=== PATIENT | male | born 1955 ===

== ENCOUNTER → 2022-10-17 16:06 | Outpatient (BNVA) | payer MEDICARE, OTHER, SELFPAY | PROVIDERS: Family Provider Nurse Practitioner Family; PCP Nurse Practitioner Family; Visit Provider Internal Medicine Cardiovascular Disease | DX: R07.9 Chest pain, unspecified (principal); R00.2 Palpitations; R00.1 Bradycardia, unspecified; Z86.73 Personal history of transient ischemic attack (TIA), and cerebral infarction without residual deficits; G20 Parkinson's disease | CPT/HCPCS: 93005; 99204 ==

== ENCOUNTER → 2023-02-05 13:29 | Outpatient (BNVA) | payer MEDICARE, OTHER, SELFPAY | PROVIDERS: Family Provider Nurse Practitioner Family; PCP Nurse Practitioner Family; Visit Provider Nurse Practitioner Family | DX: I63.9 Cerebral infarction, unspecified (principal) | CPT/HCPCS: 99214 ==

== ENCOUNTER 2023-04-20 08:47 | Outpatient (CLI) | payer MEDICARE, OTHER, SELFPAY ==
[2023-04-20 09:25] LABS: Basophils # 0.1 10^3/uL (0.0-0.1); Basophils % 0.6 %; Eosinophils # 0.9 10^3/uL (0.0-0.8); Eosinophils % 6.1 %; Hematocrit 48.2 % (37-53); Lymphocytes # 4.4 10^3/uL (0.8-4.8); Lymphocytes % 30.8 %; Mean Corpuscular HGB Conc 33.2 g/dL (30-55); Mean Corpuscular Hemoglobin 30.5 pg (27-33); Mean Platelet Volume 10.4 fL (7.4-10.4); Monocytes # 1.2 10^3/uL (0.2-0.9); Monocytes % 8.6 %; Neutrophils # 7.56 10^3/uL (1.8-7.7); Neutrophils % 53.5 %; Nucleated Red Blood Cells % 0 %; Platelet Count 168 10^3/cmm (157-399); Red Blood Count 5.24 10^6/uL (3.85-5.65); Red Cell Distribution Width 13.4 % (12.1-15.1); White Blood Count 14.16 10^3/uL (3.29-11.43)
[2023-04-20 09:32] VITALS: BMI 25.3
[2023-04-20 09:53] LABS: Slide Review Slide Review Perform
[2023-04-20] MEDS: cephALEXin 500 mg Capsule 2000 MG PO (09:53)
--- NOTE | 2023-04-20 10:37 | P.HP_ITS ---
Providers/Chief Complaint 2 Admitting Physician: FORTUNATO Phelps MD Primary Care Provider: Danielle Duarte APN Chief Complaint: I63.9 History of Present Illness Rigoberto Valdovinos is a 67 year old male with a history of recurrent CVA, cryptogenic. He had an event monitor which was unremarkable. For further management of his condition, an implantable cardiac monitoring was recommended. Patient is known to have parkinsonian tremor, high blood pressure, dyslipidemia, type 2 diabetes, hypothyroidism and COPD. No history for coronary disease or congestive heart failure. Currently has no fever or chills. He is on long-term prednisone. His white cell count is elevated possibly from the prednisone. Review of Systems 2 Narrative: CONSTITUTIONAL: No fever or chills. EYES: No blurring of vision or other visual disturbances lately. ENT: No hoarseness of voice, auditory disturbances or sore throat. CARDIOVASCULAR: As mentioned above. RESPIRATORY: No significant cough. GASTROINTESTINAL: No hematemesis or melena. GENITOURINARY: No dysuria or hematuria. INTEGUMENTARY: No skin rashes or history of skin cancer. NEURO: Patient has generalized tremor PSYCHIATRIC: No history of psychosis or major depression. HEMATOLOGIC: No bleeding disorders or significant anemia. ENDOCRINE: No history of polyuria or polydipsia. MUSCULOSKELETAL: No recent joint pain or swelling. ALLERGY/IMMUNOLOGY: As mentioned above. Medications/Allergies Home Medications Medication Instructions Recorded Confirmed Last Taken Type arformoterol 15 mcg/2 mL solution 2 ml inhalation BID 10/17/22 04/20/23 04/20/23 History for nebulization (Brovana) budesonide 0.25 mg/2 mL suspension 0.25 mg inhalation BID 10/17/22 04/20/23 04/20/23 History for nebulization carbidopa 25 mg-levodopa 100 mg 1 tab PO TID 10/17/22 04/20/23 04/19/23 History tablet cholecalciferol (vitamin D3) 125 125 mcg PO DAILY 10/17/22 04/20/23 04/19/23 History mcg (5,000 unit) capsule escitalopram oxalate 20 mg tablet 20 mg PO DAILY 10/17/22 04/20/23 04/19/23 History (Lexapro) glipizide 5 mg tablet 5 mg PO DAILY 10/17/22 04/20/23 04/19/23 History levothyroxine 75 mcg capsule 75 mcg PO DAILY 10/17/22 04/20/23 04/19/23 History lisinopril 10 mg tablet 10 mg PO DAILY 10/17/22 04/20/23 04/19/23 History prednisone 5 mg tablet 5 mg PO DAILY 10/17/22 04/20/23 04/19/23 History revefenacin 175 mcg/3 mL solution 175 mcg inhalation DAILY 10/17/22 04/20/23 04/19/23 History for nebulization (Yupelri) roflumilast 500 mcg tablet 500 mcg PO DAILY 10/17/22 04/20/23 04/19/23 History (Daliresp) rosuvastatin 10 mg tablet 10 mg PO DAILY 10/17/22 04/20/23 04/19/23 History clopidogrel 75 mg tablet 75 mg PO DAILY 02/05/23 04/20/23 04/19/23 History Allergies Allergy/AdvReac Type Severity Reaction Status Date / Time aspirin Allergy Severe ALGY-Difficulty Verified 04/18/23 11:01 Breathing Vitals/I&O/Wt Weight last 48 hrs Weight 192 lb Physical Exam 2 Narrative: GENERAL: The patient is alert and oriented times three. Not in any acute distress. HEENT: No significant pallor, icterus or lymphadenopathy.Oral cavity: There are no mucous membrane lesions. NECK: Trachea appears to be central. No masses noted. No JVD or thyromegaly appreciated. RESPIRATORY: Chest is symmetrical. No intercostals muscle retraction or any accessory muscle activation. There is no chest wall tenderness. Breath sounds are heard bilaterally. No rales or rhonchi heard. No evidence of any consolidation. BREASTS: Deferred. HEART: The heart sounds are normal. No S3 or S4. No significant murmurs. No pericardial rub ABDOMEN: No vessel pulsations or distention. No tenderness. No organomegaly appreciated. Bowel sounds are normally heard. : Deferred. RECTAL: Deferred. LYMPHATIC: No lymphadenopathy noted in the neck. EXTREMITIES: Upper extremity tremor MUSCULOSKELETAL: No acute joint deformities or swelling SKIN: Has some generalized rashes NEUROPSYCHIATRIC: The patient is alert and oriented x3. Appears to be in a good mood. No tremors or rigidity noted. Data 04/20/23 09:10 Other Labs: Laboratory Last Values WBC 14.16 10^3/uL (3.29-11.43) H 04/20/23 09:10 RBC 5.24 10^6/uL (3.85-5.65) 04/20/23 09:10 Hgb 16.00 g/dL (11.27-16.99) 04/20/23 09:10 Hct 48.2 % (37-53) 04/20/23 09:10 MCV 92.0 fl (82-101) 04/20/23 09:10 MCH 30.5 pg (27-33) 04/20/23 09:10 MCHC 33.2 g/dL (30-55) 04/20/23 09:10 RDW 13.4 % (12.1-15.1) 04/20/23 09:10 Plt Count 168 10^3/cmm (157-399) 04/20/23 09:10 MPV 10.4 fL (7.4-10.4) 04/20/23 09:10 Neut % (Auto) 53.5 % 04/20/23 09:10 Lymph % (Auto) 30.8 % 04/20/23 09:10 [place] % (Auto) 8.6 % 04/20/23 09:10 Eos % (Auto) 6.1 % 04/20/23 09:10 Baso % (Auto) 0.6 % 04/20/23 09:10 Neut # (Auto) 7.56 10^3/uL (1.8-7.7) 04/20/23 09:10 Lymph # (Auto) 4.4 10^3/uL (0.8-4.8) 04/20/23 09:10 [place] # (Auto) 1.2 10^3/uL (0.2-0.9) H 04/20/23 09:10 Eos # (Auto) 0.9 10^3/uL (0.0-0.8) H 04/20/23 09:10 Baso # (Auto) 0.1 10^3/uL (0.0-0.1) 04/20/23 09:10 Nucleated RBC % (auto) 0 % 04/20/23 09:10 Nucleated RBCs # 0.0 /100WBC 04/20/23 09:10 A&P Assessment and plan (1) Recurrent cerebrovascular accidents (CVAs): (2) Parkinsons disease: Qualifiers: Dyskinesia presence: unspecified whether dyskinesia Fluctuating manifestations: without fluctuating manifestations Qualified Code(s): G20.A1 - Parkinson's disease without dyskinesia, without mention of fluctuations (3) Hypertension: Qualifiers: Hypertension type: primary hypertension Qualified Code(s): I10 - Essential (primary) hypertension (4) Dyslipidemia: Plan Because of the cryptogenic stroke, NICM was recommended. Possibility of infection, bleeding and other contributing complications were explained in detail. Patient and his understood this well and consented to proceed Attestations 2 Medical Necessity Statement*: Possible discharge home after the procedure Coding Level of Care Code 92968 Diagnoses Recurrent cerebrovascular accidents (CVAs) I63.9 Parkinson's disease without fluctuating manifestations, unspecified whether dyskinesia present G20.A1 Dyskinesia presence: unspecified whether dyskinesia Fluctuating manifestations: without fluctuating manifestations Primary hypertension I10 Hypertension type: primary hypertension Dyslipidemia E78.5
--- NOTE | 2023-04-20 10:43 | W.PM.OPSUD ---
Surgery/Procedure H&P Update DATE OF PROCEDURE: April 20, 2023 DATE H&P PERFORMED: 04/20/23 PREOP DIAGNOSIS: Cryptogenic stroke PRIMARY INDICATION FOR PROCEDURE: As above PLANNED PROCEDURE: Operation Date: 04/20/23 10:00 [place]posed [place] [address],63.9(Not Applicable) - Lor Phelps MD
--- NOTE | 2023-04-20 11:06 | P.OP_ITS ---
Operative Report Date of procedure: April 20, 2023 Surgeon: Lor Phelps MD Procedure: Date of Procedure: 04/20/2023 Name of the procedure: IMPLANTABLE BEAM BUILDER INSERTION LOCATION: Cardiac Catheterization Laboratory REFERRING PROVIDER: Kizzy Ramirez PREOPERATIVE DIAGNOSIS: Cryptogenic stroke, recurrent POSTOPERATIVE DIAGNOSIS: Same. ESTIMATED BLOOD LOSS: None COMPLICATIONS: None. BRIEF HISTORY: Patient presented with recurrent cryptogenic stroke. He had an event monitor which didn't reveal any significant arrhythmias to explain the symptoms. For further evaluation, an implantable monitoring coordinator was recommended PROCEDURE: The procedure was explained to the patient and his in detail with the risks and benefits. The risk of bleeding, hematoma, vascular injury, infection and other concomitant complications were explained in detail. The patient understood this well and consented to proceed. The patient was brought to the cardiopulmonary recovery unit(CPRU). The left side of the chest was cleaned and draped in a sterile fashion. 1% Xylocaine was used as local anesthetic agent. An incision was made in the left fourth intercostal space. Making use of the application device, the implantable monitoring coordinator was inserted, subcutaneously. 5 minutes of manual pressure was applied, at the puncture site. The patient tolerated the procedure very well and there were no complications. No bleeding or hematoma. Steri-Strips were applied over the insertion site followed by a sterile dressing. Patient was sent back to the medical floor in stable condition IMPLANTED DEVICE Reveal [id number] Model number: [id number] Serial number: [id number] Make: [employer] Parameters: Standard settings were applied( (tachycardia rate of 150 beats per minute , bradycardia rate of 40 beats per minute and a pause of 3 seconds ; symptom recording -4 episodes of 7.5 minutes. Atrial fibrillation detection was turned on- recording threshold of ->10 minutes. Sensitivity was kept at 0.035 mV) The R wave sensing was 0.63 mV
[2023-04-20 12:27] VITALS: BP 125/73; PULSE 70; RESP 14; O2SAT 97
== END 2023-04-20 08:48 | disposition home or self-care (01) ==
PROVIDERS: PCP Nurse Practitioner Family; Visit Provider Internal Medicine Cardiovascular Disease
PROC: (CPT 33285; principal; 2023-04-20 10:00)
DX: I63.9 Cerebral infarction, unspecified (principal); G20.A1 Parkinson's disease without dyskinesia, without mention of fluctuations; I10 Essential (primary) hypertension; E78.5 Hyperlipidemia, unspecified; E11.9 Type 2 diabetes mellitus without complications; E03.9 Hypothyroidism, unspecified; J44.9 Chronic obstructive pulmonary disease, unspecified
CPT/HCPCS: 33285; 36415; 85025; C1764; C1769

== ENCOUNTER → 2023-04-30 14:56 | Outpatient (BNVA) | payer MEDICARE, OTHER, SELFPAY | PROVIDERS: PCP Nurse Practitioner Family; Visit Provider Nurse Practitioner Family | DX: I44.0 Atrioventricular block, first degree (principal); Z95.818 Presence of other cardiac implants and grafts | CPT/HCPCS: 99213 ==

== ENCOUNTER → 2023-06-20 23:30 | Outpatient (BNVA) | payer MEDICARE, OTHER, SELFPAY | PROVIDERS: PCP Nurse Practitioner Family; Visit Provider Internal Medicine Cardiovascular Disease | DX: Z45.09 Encounter for adjustment and management of other cardiac device (principal) | CPT/HCPCS: 93298 ==

== ENCOUNTER → 2023-08-08 16:09 | Outpatient (BNVA) | payer MEDICARE, OTHER, SELFPAY | PROVIDERS: PCP Nurse Practitioner Family; Visit Provider Internal Medicine Cardiovascular Disease | DX: Z45.09 Encounter for adjustment and management of other cardiac device (principal) | CPT/HCPCS: 93298 ==

== ENCOUNTER → 2023-09-13 10:44 | Outpatient (BNVA) | payer MEDICARE, OTHER, SELFPAY | PROVIDERS: PCP Nurse Practitioner Family; Visit Provider Internal Medicine Cardiovascular Disease | DX: Z45.09 Encounter for adjustment and management of other cardiac device (principal) | CPT/HCPCS: 93298 ==

== ENCOUNTER → 2023-10-16 14:32 | Outpatient (BNVA) | payer MEDICARE, OTHER, SELFPAY | PROVIDERS: PCP Nurse Practitioner Family; Visit Provider Internal Medicine Cardiovascular Disease | DX: Z45.09 Encounter for adjustment and management of other cardiac device (principal) | CPT/HCPCS: 93298 ==

== ENCOUNTER 2023-10-30 13:36 | Emergency (ER) | payer MEDICARE, OTHER, SELFPAY ==
--- NOTE | 2023-10-30 13:40 | ECG_ITS ---
[facility] Test Date: 2023-10-30 Pat Name: Rigoberto Valdovinos Department: Room: Gender: Male Lead Driver: : 1955 Requested By: Chinmay Benoit Order Number: [id number] MD: Lor Phelps M.D. Measurements Intervals [place] Rate: 75 P: 38 ID: [id number] QRS: 13 QRSD: 93 T: 71 QT: 387 QTc: 433 Interpretive Statements SINUS RHYTHM LOW QRS VOLTAGE IN PRECORDIAL LEADS [QRS DEFLECTION < 1.0 mV IN CHEST LEADS] NONSPECIFIC T-WAVE ABNORMALITY Compared to ECG 10/17/2022 16:14:32 Low QRS voltage now present T-wave abnormality now present Electronically Signed On 10-31-2023 6:26:45 CDT by Lor Phelps M.D. [id number]
[2023-10-30 13:47] VITALS: BP 121/73; PULSE 78; RESP 18; TEMP 36.6; O2SAT 96
--- NOTE | 2023-10-30 14:00 | XRR_ITS ---
PROCEDURE INFORMATION: Exam: XR Chest Exam date and time: 10/30/2023 2:03 PM Age: 68 years old Clinical indication: Shortness of breath; Additional info: SOB TECHNIQUE: Imaging protocol: Radiologic exam of the chest. Views: 1 view. COMPARISON: No relevant prior studies available. FINDINGS: Lungs: No focal consolidation. Pleural spaces: No evidence of pneumothorax. No evidence of pleural effusion. Heart/Mediastinum: Cardiomediastinal silhouette is within normal limits. Monitor projects over the cardiac silhouette. Bones/joints: No evidence of acute osseous abnormality. XR/XR chest 1V portable [id number] IMPRESSION: 1. No acute cardiopulmonary abnormality.
--- NOTE | 2023-10-30 14:00 | W.ED.EXTPRO ---
HPI - Extremity Problem General: Chief complaint: Extremity Injury, Lower Stated complaint: feet swelling, dr duarte referral Time Seen by Provider: 10/30/23 13:57 Source: patient Mode of arrival: ambulatory Limitations: no limitations History of Present Illness: 68-year-old male states been having bilateral feet swelling over the last few weeks. He states he saw his PCP yesterday was started on Lasix states that swelling has not improved he is only had 1 days worth of Lasix denies any chest pain denies any shortness of breath has some slight feet pain. Associated symptoms: Deny chest pain, fever(s) or rash Review of Systems Const: Denies: fever(s), chills, body aches or change in appetite ENMT: Denies: throat pain or dental pain Card: Denies: chest pain Resp: Denies: dyspnea GI: Denies: abdominal pain, nausea, vomiting or diarrhea Musc: Reports: extremity swelling; Denies: neck pain or back pain Skin/Breast: Denies: rash Neuro: Denies: headache(s) PFS ED PFSH: Medical History Implantable loop recorder present Physical Exam Const: COMMON NORMALS: no acute distress, patient oriented x3 and healthy appearing HENMT: COMMON NORMALS: normocephalic and atraumatic HEAD & SCALP: normocephalic and atraumatic Eye: COMMON NORMALS: conjunctivae normal CONJUNCTIVA: Yes conjunctivae normal Neck/C-Spine: COMMON NORMALS: full ROM and supple Chest: COMMONS NORMALS: normal inspection of the chest Resp: COMMON NORMALS: normal respiratory effort Cardio: COMMON NORMALS: regular rate, regular rhythm and No murmurs present (Cardio) RATE: regular rate RHYTHM: regular rhythm GI: COMMON NORMALS: Normal to inspection, nondistended, normoactive bowel sounds present, Soft to palpation, non-tender and no masses PALPATION: Yes Soft to palpation Extremity: COMMON NORMALS: full ROM NARRATIVE EXTREMITY EXAM: 2+ edema Neuro: COMMON NORMALS: patient oriented x3, moves all extremities and no focal motor deficits Psych: COMMON NORMALS: mental status grossly normal, Normal thought process present and cooperative THOUGHT PROCESS: Normal thought process present Skin: COMMON NORMALS: no rashes or lesions noted and no wounds GENERAL SKIN EXAM: no rashes or lesions noted Course Vital Signs: Vital signs: Vital Signs Temperature 97.9 F 10/30/23 13:47 Pulse Rate 78 10/30/23 13:47 Respiratory Rate 18 10/30/23 13:47 Blood Pressure 121/73 10/30/23 13:47 Pulse Oximetry 96 10/30/23 13:47 Oxygen Delivery Me thod Room Air 10/30/23 13:47 MDM - Extremity (Nontraumatic) Medical Decision Making Patient presents for lower extremity edema he has no signs of pulmonary edema he is well-appearing here I did give him an IV dose of Lasix he continue his Lasix at home he is to do compression elevate his legs follow-up with PCP return if worsening. Medical Records I reviewed the patient's medical records. Lab Data I reviewed the patient's lab results. 10/30/23 14:04 10/30/23 14:04 Radiology Impressions Chest X-Ray 10/30/23 14:00 IMPRESSION: 1. No acute cardiopulmonary abnormality. Laboratory Results WBC 12.67 10^3/uL (3.29-11.43) H 10/30/23 14:04 RBC 4.68 10^6/uL (3.85-5.65) 10/30/23 14:04 Hgb 14.50 g/dL (11.27-16.99) 10/30/23 14:04 Hct 43.1 % (37-53) 10/30/23 14:04 MCV 92.1 fl (82-101) 10/30/23 14:04 MCH 31.0 pg (27-33) 10/30/23 14:04 MCHC 33.6 g/dL (30-55) 10/30/23 14:04 RDW 13.9 % (12.1-15.1) 10/30/23 14:04 Plt Count 182 10^3/cmm (157-399) 10/30/23 14:04 MPV 9.9 fL (7.4-10.4) 10/30/23 14:04 Neut % (Auto) 58.0 % 10/30/23 14:04 Lymph % (Auto) 24.1 % 10/30/23 14:04 [place] % (Auto) 9.6 % 10/30/23 14:04 Eos % (Auto) 6.6 % 10/30/23 14:04 Baso % (Auto) 0.7 % 10/30/23 14:04 Neut # (Auto) 7.35 10^3/uL (1.8-7.7) 10/30/23 14:04 Lymph # (Auto) 3.1 10^3/uL (0.8-4.8) 10/30/23 14:04 [place] # (Auto) 1.2 10^3/uL (0.2-0.9) H 10/30/23 14:04 Eos # (Auto) 0.8 10^3/uL (0.0-0.8) 10/30/23 14:04 Baso # (Auto) 0.1 10^3/uL (0.0-0.1) 10/30/23 14:04 Nucleated RBC % (auto) 0 % 10/30/23 14:04 Nucleated RBCs # 0.0 /100WBC 10/30/23 14:04 Sodium 139 mmol/L (136-145) 10/30/23 14:04 Potassium 3.9 mmol/L (3.5-5.1) 10/30/23 14:04 Chloride 99 mmol/L (98-107) 10/30/23 14:04 Carbon Dioxide 26 mmol/L (22-29) 10/30/23 14:04 Anion Gap 17.9 (5-19) 10/30/23 14:04 BUN 15 mg/dL (8-23) 10/30/23 14:04 Creatinine 1.0 mg/dL (0.7-1.2) 10/30/23 14:04 GFR Calculation 74.3 mL/min (90-130) L 10/30/23 14:04 Glucose 137 mg/dL (65-115) H 10/30/23 14:04 Calculated Osmolality 291 mOsm/kg (285-295) 10/30/23 14:04 Calcium 9.0 mg/dL (8.5-10.5) 10/30/23 14:04 Total Bilirubin 0.5 mg/dL (0.15-1.2) 10/30/23 14:04 AST 23 U/L (0-40) 10/30/23 14:04 ALT 34 U/L (0-41) 10/30/23 14:04 Alkaline Phosphatase 50 U/L (40-130) 10/30/23 14:04 NT-Pro-B Natriuret Pep 89 pg/mL (0-125) 10/30/23 14:04 Total Protein 7.0 g/dL (6.6-8.7) 10/30/23 14:04 Albumin 4.0 g/dL (3.5-5.2) 10/30/23 14:04 Globulin 3.0 g/dL (1.3-4.6) 10/30/23 14:04 All radiology interpretation(s) finalized by discharge EKG Data EKG 1: I personally reviewed and interpreted this EKG as follows: EKG interpretation date: 10/30/23 EKG interpretation time: 14:19 Interpretation: nsr hr [address] or t wave abnormalities qrs 93 qtc 415 Discharge Plan Discharge Patient Disposition: Home Clinical Impression: Bilateral edema of lower extremity Condition: Stable Prescriptions: No Action glipizide 5 mg tablet 10 mg PO BID escitalopram oxalate [Lexapro] 20 mg tablet 20 mg PO DAILY roflumilast [Daliresp] 500 mcg tablet 500 mcg PO DAILY rosuvastatin 10 mg tablet 10 mg PO DAILY levothyroxine 75 mcg capsule 75 mcg PO DAILY prednisone 5 mg tablet 5 mg PO DAILY lisinopril 10 mg tablet 10 mg PO DAILY budesonide 0.25 mg/2 mL suspension for nebulization 0.25 mg inhalation BID PRN (Reason: Shortness Of Breath) Yupelri 175 mcg/3 mL solution for nebulization 175 mcg inhalation DAILY arformoterol [Brovana] 15 mcg/2 mL solution for nebulization 2 ml inhalation BID PRN (Reason: Shortness Of Breath) clopidogrel 75 mg tablet 75 mg PO DAILY primidone 50 mg tablet See Rx Instructions .ROUTE .COMPLEX Rx Instructions: Take 1/2 tablet by mouth twice daily for 14days, then 1 tablet twice daily for 14 days, then 1 tablet in the morning & 2 tablets in the evening for 14 days, then 2 tablets in the morning and 3 tablets in the evening. furosemide 20 mg tablet 20 - 40 mg PO DAILY PRN (Reason: SWELLING) ergocalciferol (vitamin D2) 1,250 mcg (50,000 unit) capsule 1,250 mcg PO Q7D fluticasone propionate 50 mcg/actuation spray,suspension 1 spray INTRANASAL DAILY Discharge Orders: Discharge ED (Routine); Ordered 10/30/23 Ordered By: Chinmay Benoit Referrals: Duarte,Danielle, VENDING ROUTE SERVICER [Primary Care Provider] - 4-7 days Discharge Diet: Advance as tolerated Discharge Activity: Resume usual activity Patient Instructions: Leg Edema (ED) Coding Level of Care Code ED Sample Distributor for Hu Ryan
[2023-10-30 14:17] LABS: Basophils # 0.1 10^3/uL (0.0-0.1); Basophils % 0.7 %; Eosinophils # 0.8 10^3/uL (0.0-0.8); Eosinophils % 6.6 %; Hematocrit 43.1 % (37-53); Lymphocytes # 3.1 10^3/uL (0.8-4.8); Lymphocytes % 24.1 %; Mean Corpuscular HGB Conc 33.6 g/dL (30-55); Mean Corpuscular Volume 92.1 fl (82-101); Mean Platelet Volume 9.9 fL (7.4-10.4); Monocytes # 1.2 10^3/uL (0.2-0.9); Monocytes % 9.6 %; Neutrophils # 7.35 10^3/uL (1.8-7.7); Nucleated Red Blood Cells % 0 %; Platelet Count 182 10^3/cmm (157-399); Red Blood Count 4.68 10^6/uL (3.85-5.65); Red Cell Distribution Width 13.9 % (12.1-15.1); White Blood Count 12.67 10^3/uL (3.29-11.43)
[2023-10-30 14:30] VITALS: BP 119/76; PULSE 75; O2SAT 97
[2023-10-30 14:40] LABS: Alanine Aminotransferase 34 U/L (0-41); Alkaline Phosphatase 50 U/L (40-130); Anion Gap 17.9 (5-19); Aspartate Amino Transferase 23 U/L (0-40); Blood Urea Nitrogen 15 mg/dL (8-23); Carbon Dioxide 26 mmol/L (22-29); Chloride 99 mmol/L (98-107); Glomerular Filtration Rate 74.3 mL/min (90-130); Glucose 137 mg/dL (65-115); NT Pro B Type Natriuretic Pept 89 pg/mL (0-125); Osmolality Calculated 291 mOsm/kg (285-295); Potassium 3.9 mmol/L (3.5-5.1); Sodium 139 mmol/L (136-145); Total Bilirubin 0.5 mg/dL (0.15-1.2)
[2023-10-30] MEDS: FUROsemide 10 mg/mL SDV 10mL 60 MG IVP (14:45)
[2023-10-30 15:43] VITALS: BP 127/76; PULSE 71; O2SAT 97
== END 2023-10-30 15:48 | disposition home or self-care (01) ==
PROVIDERS: Emergency Provider Emergency Medicine; PCP Nurse Practitioner Family
DX: R60.0 Localized edema (principal); Z79.02 Long term (current) use of antithrombotics/antiplatelets; Z79.84 Long term (current) use of oral hypoglycemic drugs
CPT/HCPCS: 36415; 71045; 80053; 83880; 85025; 93005; 96374; 99285; J1940

== ENCOUNTER → 2024-01-16 09:28 | Outpatient (BNVA) | payer MEDICARE, OTHER, SELFPAY | PROVIDERS: PCP Nurse Practitioner Family; Visit Provider Internal Medicine Cardiovascular Disease | DX: Z45.09 Encounter for adjustment and management of other cardiac device (principal) | CPT/HCPCS: 93296; 93298 ==

== ENCOUNTER → 2024-04-09 09:41 | Outpatient (BNVA) | payer MEDICARE, OTHER, SELFPAY | PROVIDERS: PCP Nurse Practitioner Family; Visit Provider Internal Medicine Cardiovascular Disease | DX: Z45.09 Encounter for adjustment and management of other cardiac device (principal) | CPT/HCPCS: 93298 ==

== ENCOUNTER → 2024-05-14 10:06 | Outpatient (BNVA) | payer MEDICARE, OTHER, SELFPAY | PROVIDERS: PCP Nurse Practitioner Family; Visit Provider Internal Medicine Cardiovascular Disease | DX: Z45.09 Encounter for adjustment and management of other cardiac device (principal) | CPT/HCPCS: 93298 ==

== ENCOUNTER → 2024-06-11 08:59 | Outpatient (BNVA) | payer MEDICARE, OTHER, SELFPAY | PROVIDERS: PCP Nurse Practitioner Family; Visit Provider Internal Medicine | DX: Z45.09 Encounter for adjustment and management of other cardiac device (principal) | CPT/HCPCS: 93298 ==

== ENCOUNTER → 2024-08-13 11:57 | Outpatient (BNVA) | payer MEDICARE, OTHER, SELFPAY | PROVIDERS: PCP Nurse Practitioner Family; Visit Provider Internal Medicine Cardiovascular Disease | DX: Z45.09 Encounter for adjustment and management of other cardiac device (principal) | CPT/HCPCS: 93298 ==

== ENCOUNTER → 2024-10-16 08:21 | Outpatient (BNVA) | payer MEDICARE, OTHER, SELFPAY | PROVIDERS: PCP Nurse Practitioner Family; Visit Provider Internal Medicine | DX: Z45.09 Encounter for adjustment and management of other cardiac device (principal) | CPT/HCPCS: 93298 ==

== ENCOUNTER → 2024-12-10 12:44 | Outpatient (BNVA) | payer MEDICARE, OTHER, SELFPAY | PROVIDERS: PCP Nurse Practitioner Family; Visit Provider Internal Medicine Cardiovascular Disease | DX: Z45.09 Encounter for adjustment and management of other cardiac device (principal) | CPT/HCPCS: 93298 ==

== ENCOUNTER → 2025-02-04 13:40 | Outpatient (BNVA) | payer MEDICARE, OTHER, SELFPAY | PROVIDERS: PCP Nurse Practitioner Family; Visit Provider Internal Medicine Cardiovascular Disease | DX: Z45.09 Encounter for adjustment and management of other cardiac device (principal) | CPT/HCPCS: 93298 ==

== ENCOUNTER → 2025-03-11 13:35 | Outpatient (BNVA) | payer MEDICARE, OTHER, SELFPAY | PROVIDERS: PCP Nurse Practitioner Family; Visit Provider Internal Medicine Cardiovascular Disease | DX: Z45.09 Encounter for adjustment and management of other cardiac device (principal) | CPT/HCPCS: 93298 ==

== ENCOUNTER 2025-03-16 15:51 | Observation (INO) | payer MEDICARE, OTHER, SELFPAY ==
--- OUTSIDE RECORDS SUMMARY | 2023-12-24 07:00 | XMS_ITS ---
Author Organization [facility] Address [address] [place] [address] Care Team Providers Care Portrait Studio Photographer Name Role Phone Gerald, [facility] Primary Care Provider NEY Nguyen Unavailable [phone] REASON FOR VISIT w/ MRI Medications Medication SIG (Take, Route, Frequency, Duration) Notes Start Date End Date Status predniSONE 5 mg TAKE ONE TABLET BY MOUTH EVERY DAY OR DIRECTED; Duration: 30 Active Fluticasone Propionate 50 MCG/ACT insitll ONE SPRAY IN EACH NOSTRIL TWICE DAILY Nasal; Duration: 30 Not-Taking glipiZIDE 5 mg TAKE TWO TABLETS BY MOUTH TWICE DAILY with meals FOR blood sugar; Duration: 30 Active Albuterol Sulfate (2.5 MG/3ML) 0.083% 3 ml as needed Inhalation every 6 hrs; Duration: 30 days Active Ativan 0.5 MG 1/2 to 1 tab Orally twice a day prn anxiety; Duration: 30 days 03/16/2022 Active Escitalopram Oxalate 20 mg TAKE ONE TABLET BY MOUTH EVERY DAY; Duration: 30 Active Vitamin D (Ergocalciferol) 1.25 MG (62396 UT) TAKE ONE CAPSULE BY MOUTH EVERY WEEK; Duration: 28 Active Rosuvastatin Calcium 10 mg TAKE ONE TABLET BY MOUTH EVERY DAY; Duration: 30 Active Clopidogrel Bisulfate 75 mg TAKE ONE TABLET BY MOUTH EVERY DAY; Duration: 30 Active Carbidopa-Levodopa 10-100 MG 1 tablet Orally Three times a day; Duration: 30 day(s) Active Lisinopril 10 mg TAKE ONE TABLET BY MOUTH EVERY DAY; Duration: 30 Active Budesonide 0.5 MG/2ML USE 1 VIAL IN NEBULIZER TWICE DAILY (RINSE MOUTH AFTER EACH TREATMENT) Active Yupelri 175 MCG/3ML USE 1 VIAL IN NEBULIZER DAILY Active Arformoterol Tartrate 15 MCG/2ML USE 1 VIAL IN NEBULIZER TWICE DAILY (MORNING AND EVENING) Active Levothyroxine Sodium 75 mcg TAKE ONE TABLET BY MOUTH DAILY; Duration: 30 Active Roflumilast 500 MCG TAKE ONE TABLET BY MOUTH EVERY DAY; Duration: 30 *Reorder from [facility] for eRx and Interaction Alerts* Active Encounters Encounter Location Date Provider Diagnosis [facility] [address] [place] [address] 12/24/2023 NEY URENA Plan Of Treatment No Information Progress Notes * Marce HENRYy EDOB: [birth year] (69 yo M)Acc No.[id number]:12/24/2023 Progress Notes Patient: Rigoberto MARROQUIN Provider: Sigrid Urena APRN :1955 A ge:68 Y S ex:Male Date:12/24/2023 Address:[address] [place] [id number] Pcp:Danielle Duarte Subjective: * Chief Complaints: * 1 . w/ MRI. * Medical History: * Medications: T aking Roflumilast 500 MCG Tablet TAKE ONE TABLET BY MOUTH EVERY DAY , Notes to Pharmacist: *Reorder from [facility] for eRx and Interaction Alerts*, Taking Arformoterol Tartrate 15 MCG/2ML Nebulization Solution USE 1 VIAL IN NEBULIZER TWICE DAILY (MORNING AND EVENING) , Taking Yupelri 175 MCG/3ML Solution USE 1 VIAL IN NEBULIZER DAILY , Taking Budesonide 0.5 MG/2ML Suspension USE 1 VIAL IN NEBULIZER TWICE DAILY (RINSE MOUTH AFTER EACH TREATMENT) , Taking Lisinopril 10 mg Tablet TAKE ONE TABLET BY MOUTH EVERY DAY , Taking Levothyroxine Sodium 75 mcg Tablet TAKE ONE TABLET BY MOUTH DAILY , Taking Carbidopa-Levodopa 10-100 MG Tablet 1 tablet Orally Three times a day , Taking Clopidogrel Bisulfate 75 mg Tablet TAKE ONE TABLET BY MOUTH EVERY DAY , Taking Rosuvastatin Calcium 10 mg Tablet TAKE ONE TABLET BY MOUTH EVERY DAY , Taking Vitamin D (Ergocalciferol) 1.25 MG (29012 UT) Capsule TAKE ONE CAPSULE BY MOUTH EVERY WEEK , Taking Escitalopram Oxalate 20 mg Tablet TAKE ONE TABLET BY MOUTH EVERY DAY , Taking predniSONE 5 mg Tablet TAKE ONE TABLET BY MOUTH EVERY DAY OR DIRECTED , Taking Ativan 0.5 MG Tablet 1/2 to 1 tab Orally twice a day prn anxiety , Taking Albuterol Sulfate (2.5 MG/3ML) 0.083% Nebulization Solution 3 ml as needed Inhalation every 6 hrs , Taking glipiZIDE 5 mg Tablet TAKE TWO TABLETS BY MOUTH TWICE DAILY with meals FOR blood sugar , Not-Taking Fluticasone Propionate 50 MCG/ACT Suspension insitll ONE SPRAY IN EACH NOSTRIL TWICE DAILY Nasal Objective: * Vitals: Assessment: Plan: * Treatment: * Billing Information: * Visit Code: * Procedure Codes: * Electronic signature of RADHA URENA APRN on 03/16/2025 at 07:13 PM BIOMECHANICAL ENGINEER Sign off status: Pending * Provider: Sigrid Urena APRN Date: 0 12/24/2023 Generated for Brendan torrez/Bola/Brayden on: 1 05/17/2024 07:13 PM BIOMECHANICAL ENGINEER
[2025-03-16] VITALS (15 sets, daily range): BP systolic 91–116; BP diastolic 58–73; PULSE 92–121; RESP 16–20; TEMP 36.3–37.8; O2SAT 90–95; BMI 24.9
--- NOTE | 2025-03-16 15:59 | CTR_ITS ---
PROCEDURE INFORMATION: Exam: CT Head Without Contrast Exam date and time: 03/16/2025 4:09 PM Age: 69 years old Clinical indication: Altered mental status/memory loss; Additional info: Encephalopathy, altered mental status TECHNIQUE: Imaging protocol: Computed tomography of the head without contrast. Radiation optimization: All CT scans at this facility use at least one of these dose optimization techniques: automated exposure control; mA and/or kV adjustment per patient size (includes targeted exams where dose is matched to clinical indication); or iterative reconstruction. COMPARISON: No relevant prior studies available. RADIATION DOSE METRICS: Total DLP (mGy-cm): 752.14 FINDINGS: Brain: Age related diffuse parenchymal volume loss. 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 No recent infarct, intracranial bleed or mass effect. Cerebral ventricles: Ex vacuo dilatation of the ventricles. Paranasal sinuses: Mild mucosal disease of bilateral maxillary sinuses. Post bilateral maxillary antrectomies. Post ethmoidectomies. Complete opacification of bilateral frontal sinuses and bilateral anterior ethmoid air cells. Frothy secretions of the left sphenoid sinus. Mastoid air cells: Visualized mastoid air cells are well aerated. Orbital cavities: Post bilateral cataract surgery. Nasal cavity: There is a nasal septal defect measuring 1.8 cm. Bones: Unremarkable. No acute fracture. Soft tissues: Unremarkable. CT/CT head wo con* [id number] IMPRESSION: 1. No large territorial infarct or intracranial bleed. 2. Findings of acute paranasal sinusitis.
--- NOTE | 2025-03-16 15:59 | ECG_ITS ---
[facility] Date: 2025-03-16 Pat Name: Rigoberto Valdovinos Department: Room: Gender: Male Tester Wafer Substrate: : 1955 Requested By: Oma Garcia Order Number: [id number] Droado MD: Lor Phelps M.D. Measurements Intervals [place] Rate: 115 P: 51 HI: 167 QRS: 11 QRSD: 93 T: 51 QT: 368 QTc: 510 Interpretive Statements SINUS TACHYCARDIA NONSPECIFIC ST & T-WAVE ABNORMALITY ABNORMAL RHYTHM ECG Compared to ECG 10/30/2023 14:19:25 Sinus rhythm no longer present T-wave abnormality still present Electronically Signed On 03-17-2025 21:27:57 HEAD BOYS TENNIS COACH by Lor Phelps M.D. [email or web address] [id number]
--- NOTE | 2025-03-16 15:59 | XRR_ITS ---
PROCEDURE INFORMATION: Exam: XR Chest Exam date and time: 03/16/2025 4:36 PM Age: 69 years old Clinical indication: Other: Weakness TECHNIQUE: Imaging protocol: Radiologic exam of the chest. Views: 1 view. COMPARISON: CR XR chest 1V portable [id number] 10/30/2023 2:03 PM FINDINGS: Tubes, catheters and devices: Implantable loop recorder overlies the left side of the chest. Lungs: Unremarkable. No consolidation. Pleural spaces: Unremarkable. No pleural effusion. No pneumothorax. Heart/Mediastinum: Unremarkable. No cardiomegaly. Bones/joints: Mild degenerative disease of bilateral acromioclavicular joints. There are mild degenerative changes of the glenohumeral joint. XR/XR chest 1V portable [id number] IMPRESSION: No acute cardiopulmonary process.
--- NOTE | 2025-03-16 16:01 | W.ED.AMS ---
HPI - Altered Mental Status General: Chief Complaint: Altered Mental Status Stated Complaint: AMS Time Seen by Provider: 03/16/25 15:55 History of Present Illness: 69-year-old male with a history of Parkinson's with dementia, COPD, hyperlipidemia, hypertension, recurrent strokes who presents emergency room with altered mental status by ambulance. Patient does tell me his name but cannot tell me the date. No focal deficits. There was some report of cough. No vomiting. EMS reports he feels hot and on presentation his temp is 98.9 but on repeat it is at 100. Related Data Home Medications ?Medication ?Instructions ?Recorded ?Confirmed arformoterol 15 mcg/2 mL solution 2 ml inhalation BID PRN Shortness 10/17/22 10/30/23 for nebulization (Brovana) Of Breath budesonide 0.25 mg/2 mL suspension 0.25 mg inhalation BID PRN 10/17/22 10/30/23 for nebulization Shortness Of Breath escitalopram oxalate 20 mg tablet 20 mg PO DAILY 10/17/22 10/30/23 (Lexapro) glipizide 5 mg tablet 10 mg PO BID 10/17/22 10/30/23 levothyroxine 75 mcg capsule 75 mcg PO DAILY 10/17/22 10/30/23 lisinopril 10 mg tablet 10 mg PO DAILY 10/17/22 10/30/23 prednisone 5 mg tablet 5 mg PO DAILY 10/17/22 10/30/23 revefenacin 175 mcg/3 mL solution 175 mcg inhalation DAILY 10/17/22 10/30/23 for nebulization (Yupelri) roflumilast 500 mcg tablet 500 mcg PO DAILY 10/17/22 10/30/23 (Daliresp) rosuvastatin 10 mg tablet 10 mg PO DAILY 10/17/22 10/30/23 clopidogrel 75 mg tablet 75 mg PO DAILY 02/05/23 10/30/23 ergocalciferol (vitamin D2) 1,250 1,250 mcg PO Q7D 10/30/23 10/30/23 mcg (50,000 unit) capsule fluticasone propionate 50 1 spray intranasal DAILY 10/30/23 10/30/23 mcg/actuation nasal spray,suspension furosemide 20 mg tablet 20 - 40 mg PO DAILY PRN SWELLING 10/30/23 10/30/23 primidone 50 mg tablet See Rx Instructions .Route .COMPLEX 10/30/23 10/30/23 Allergies Allergy/AdvReac Type Severity Reaction Status Date / Time aspirin Allergy Severe ALGY-Difficulty Verified 04/30/23 15:33 Breathing Review of Systems General: Reports: ROS unobtainable due to medical condition and ROS unobtainable due to mental status [facility] ED PFSH: Medical History (Updated 03/16/25 @ 19:13 by Oma Huff MD) Implantable loop recorder present Physical Exam Narrative: General: Alert, no acute distress. Skin: Warm, dry. Head: Normocephalic, atraumatic. Neck: Supple, trachea midline. Eye: Extraocular movements are intact. Ears, nose, mouth and throat: Dry oral mucosa Cardiovascular: Regular, Normal peripheral perfusion. Respiratory: Lungs are clear to auscultation, respirations are non-labored, breath sounds are equal, Symmetrical chest wall expansion. Gastrointestinal: Soft, Nontender, Non distended Musculoskeletal: Normal ROM, no deformity. Neurological: Somnolent but arousable, appears somewhat confused, he is able to tell me his name. No focal neurological deficit observed. Psychiatric: Unable to assess Course Vital Signs: Vital signs: Vital Signs Temperature 100.0 F H 03/16/25 17:42 Pulse Rate 102 H 03/16/25 19:23 Respiratory Rate 16 03/16/25 18:30 Blood Pressure 96/60 03/16/25 19:23 Pulse Oximetry 94 03/16/25 19:23 Oxygen Delivery Me thod Room Air 03/16/25 19:23 MDM - Altered Mental Status Medical Decision Making Medical decision making Patient's reason for coming to the emergency room: Social determinants: Patient is retired. . I reviewed the patient's medical record. 69-year-old male with a history of Parkinson's with dementia, hyperlipidemia, hypertension, recurrent strokes I reviewed the patient's current home meds Alternate historians: is present later. She said over the last 2 days he has been talking out of his head. She said he got up and said he would need to go get a birthday card. He is usually not that confused. She said the last time he ate was about 2 days ago. Differential diagnosis including but not limited to and based on the above HPI, review of systems and physical exam: In this patient with altered mental status: Stroke. Hypoglycemia. Metabolic encephalopathy. Infections such as pneumonia, urinary tract infection, Covid-19, Influenza. Electrolyte abnormalities such as hypernatremia. Renal failure / uremia. Hepatic encephalopathy. Hypoxemia. Hypercapnic respiratory failure. Psychosis. Drug or alcohol intoxication. Medication overdose. Orders placed to evaluate differential diagnosis based on the above differential, HPI and physical exam EKG: Time 1652. Rate 115. Sinus tachycardia, nonspecific ST changes, no ectopy, normal IL & QRS intervals, This was reviewed and interpreted by myself the ER physician at 1655. Chest x-ray: No acute process. No infiltrate. No pneumothorax. This was reviewed and interpreted by myself the emergency room physician. I also reviewed the radiology report. CT head: No acute intracranial process. No intracranial hemorrhage, no evidence of infarct. No evidence of acute fracture. This was reviewed and interpreted by myself the emergency room physician. I also reviewed the radiology report. Lab Review: Laboratory results were reviewed and interpreted by myself the emergency room physician. Leukocytosis with white count 15,000. No anemia. Patient is RSV positive for Assessment of risk: Level of risk: Moderate risk patient. Multiple comorbidities Hospitalization considerations: Patient is being admitted to observation. Reexamination: Patient is not requiring oxygen. He did have a fever. He does appear little bit less confused. He is oriented to his . No increased work of breathing. No focal motor deficits. Consultation: I spoke with Dr. Victor who is on-call for the hospital service who agrees to admission to observation. Assessment and plan: Metabolic encephalopathy RSV Dehydration Acute renal insufficiency ?Upon arrival the patient appeared septic. He had a fever was encephalopathic and tachycardic. -2L normal saline bolus. Fluid volumes based on ideal body weight. -Broad-spectrum antibiotics were administered. Meropenem and Zyvox were given -Sepsis quality measures. -Lactic acid with a reflex was ordered. -Blood cultures were ordered. ?I reevaluated the patient's volume status after sepsis fluids were given. ?At this time patient may not be septic but just dehydrated and having RSV. This can be determined whether antibiotics need to be continued by the hospitalist. -I discussed the patient with the hospitalist on-call who is admitting the patient. - Discussed findings and plan with patient. Answered any questions. - All laboratory values were reviewed and interpreted personally by myself, the ER physician - All imaging was reviewed and interpreted personally by myself, the ER physician. - Evaluation and treatment of this problem were appropriate in the emergency setting Critical Care: -I spent a total of 47 minutes of critical care time managing the patient, independent of any other practitioner. -The time involved in the performance of separately reportable procedures was not counted towards critical care time. Lab Data 03/16/25 16:37 03/16/25 16:37 Radiology Impressions Chest X-Ray 03/16/25 15:59 IMPRESSION: No acute cardiopulmonary process. Head CT 03/16/25 15:59 IMPRESSION: 1. No large territorial infarct or intracranial bleed. 2. Findings of acute paranasal sinusitis. Laboratory Results WBC 15.93 10^3/uL (3.29-11.43) H 03/16/25 16:37 RBC 5.39 10^6/uL (3.85-5.65) 03/16/25 16:37 Hgb 16.70 g/dL (11.27-16.99) 03/16/25 16:37 Hct 50.2 % (37-53) 03/16/25 16:37 MCV 93.1 fl (82-101) 03/16/25 16:37 MCH 31.0 pg (27-33) 03/16/25 16:37 MCHC 33.3 g/dL (30-55) 03/16/25 16:37 RDW 13.2 % (12.1-15.1) 03/16/25 16:37 Plt Count 254 10^3/cmm (157-399) 03/16/25 16:37 MPV 10.2 fL (7.4-10.4) 03/16/25 16:37 Neut % (Auto) 69.4 % 03/16/25 16:37 Lymph % (Auto) 17.0 % 03/16/25 16:37 Ashley % (Auto) 10.2 % 03/16/25 16:37 Eos % (Auto) 2.0 % 03/16/25 16:37 Baso % (Auto) 0.6 % 03/16/25 16:37 Neut # (Auto) 11.05 10^3/uL (1.8-7.7) H 03/16/25 16:37 Lymph # (Auto) 2.7 10^3/uL (0.8-4.8) 03/16/25 16:37 Ashley # (Auto) 1.6 10^3/uL (0.2-0.9) H 03/16/25 16:37 Eos # (Auto) 0.3 10^3/uL (0.0-0.8) 03/16/25 16:37 Baso # (Auto) 0.1 10^3/uL (0.0-0.1) 03/16/25 16:37 Nucleated RBC % (auto) 0 % 03/16/25 16:37 Nucleated RBCs # 0.0 /100WBC 03/16/25 16:37 Sodium 137 mmol/L (136-145) 03/16/25 16:37 Potassium 3.9 mmol/L (3.5-5.1) 03/16/25 16:37 Chloride 94 mmol/L (98-107) L 03/16/25 16:37 Carbon Dioxide 19 mmol/L (22-29) L 03/16/25 16:37 Anion Gap 27.9 (5-19) H 03/16/25 16:37 BUN 20 mg/dL (8-23) 03/16/25 16:37 Creatinine 1.9 mg/dL (0.7-1.2) H 03/16/25 16:37 GFR Calculation 35.3 mL/min (90-130) L 03/16/25 16:37 Glucose 234 mg/dL (65-115) H 03/16/25 16:37 Calculated Osmolality 294 mOsm/kg (285-295) 03/16/25 16:37 Lactic Acid 3.3 mmol/L (0.5-2.2) H 03/16/25 16:37 Lactic Acid (Sepsis) 1.5 mmol/L (0.5-2.2) 03/16/25 18:43 Calcium 9.5 mg/dL (8.5-10.5) 03/16/25 16:37 Total Bilirubin 1.0 mg/dL (0.15-1.2) 03/16/25 16:37 AST 24 U/L (0-40) 03/16/25 16:37 ALT 16 U/L (0-41) 03/16/25 16:37 Alkaline Phosphatase 68 U/L (40-130) 03/16/25 16:37 Troponin T Baseline 113 ng/L (0-15) H* 03/16/25 16:37 Troponin T 60 Minute 114.3 ng/L (0-15) H 03/16/25 17:27 Delta Troponin T 1.3 ABS# (0-10) 03/16/25 17:27 C-Reactive Protein 522.3 mg/L (0.0-4.9) H 03/16/25 16:37 NT-Pro-B Natriuret Pep 329 pg/mL (0-125) H 03/16/25 16:37 Total Protein 7.0 g/dL (6.6-8.7) 03/16/25 16:37 Albumin 3.9 g/dL (3.5-5.2) 03/16/25 16: Globulin 3.1 g/dL (1.3-4.6) 03/16/25 16:37 Procalcitonin 1.28 ng/mL (0-0.5) H 03/16/25 16:37 Urine Color [place] (Yellow) A 03/16/25 18: Urine Appearance Cloudy (CLEAR) A 03/16/25 18:28 Urine pH 5.0 (5-7) 03/16/25 18: Ur Specific [place] 1.026 (1.005-1.030) 03/16/25 18: Urine Protein 2+ (Negative) A 03/16/25 18:28 Urine Glucose (UA) 3+ (Normal) H 03/16/25 18: Urine Ketones 1+ (Negative) H 03/16/25 18: Urine Blood 1+ (Negative) A 03/16/25 18:28 Urine Nitrate Positive (Negative) A 03/16/25 18:28 Urine Bilirubin 2+ (Negative) H 03/16/25 18: Urine Urobilinogen 2.0 mg/dL (Negative) H 03/16/25 18:28 Ur Leukocyte Esterase Trace (Negative) A 03/16/25 18:28 Urine RBC 6-10 /hpf (0-2) 03/16/25 18:28 Urine WBC 0-5 /hpf (0-5) 03/16/25 18:28 Ur Squamous Epith Cells 0-5 /hpf (0-5) 03/16/25 18:28 Amorphous Sediment 3+ /hpf 03/16/25 18:28 Urine Bacteria None seen /hpf (NONE) 03/16/25 18:28 Hyaline Casts 54.60 /lpf 03/16/25 18:28 Coarse Granular Casts 0-4 /lpf H 03/16/25 18:28 Influenza A (PCR) Negative (Negative) 03/16/25 17:22 Influenza Type B (PCR) Negative (Negative) 03/16/25 17:22 RSV (PCR) Positive (Negative) A 03/16/25 17:22 SARS-CoV-2 (PCR) Negative (Negative) 03/16/25 17:22 All radiology interpretation(s) finalized by discharge Discharge Plan Discharge Patient Disposition: Admitted As Inpatient Clinical Impression: Acute metabolic encephalopathy, Dehydration, Acute renal failure, RSV infection Condition: Stable Coding Level of Care Code ED Machine Cementer for u[facility] Ryan
[2025-03-16 16:52] LABS: Hematocrit 50.2 % (37-53); Hemoglobin 16.70 g/dL (11.27-16.99); Mean Corpuscular HGB Conc 33.3 g/dL (30-55); Mean Corpuscular Hemoglobin 31.0 pg (27-33); Mean Corpuscular Volume 93.1 fl (82-101); Nucleated Red Blood Cells % 0 %; Platelet Count 254 10^3/cmm (157-399); Red Blood Count 5.39 10^6/uL (3.85-5.65); White Blood Count 15.93 10^3/uL (3.29-11.43)
--- NOTE | 2025-03-16 16:59 | ECG_ITS ---
[facility] Test Date: 2025-03-16 Pat Name: Rigoberto Valdovinos Department: Room: Gender: Male Resident Medical Officer: : 1955 Requested By: Oma Garcia Order Number: [id number] Dorado MD: Lor Phelps M.D. Measurements Intervals [place] Rate: 115 P: 43 TN: 153 QRS: 16 QRSD: 94 T: 55 QT: 369 QTc: 512 Interpretive Statements SINUS TACHYCARDIA ABNORMAL RHYTHM ECG Compared to ECG 03/16/2025 16:52:42 T-wave abnormality no longer present Electronically Signed On 03-17-2025 21:51:21 EXPORT SALES ASSISTANT by Lor Phelps M.D. [email or web address]
[2025-03-16 17:24] LABS: Lactic Sepsis W/Reflex 3.3 mmol/L (0.5-2.2)
[2025-03-16 17:26] LABS: Troponin(5th) Baseline 113 ng/L (0-15)
[2025-03-16] MEDS: linezolid premix 600 MG/300 ML PREMIX 300 MG IV (17:31)
[2025-03-16] MEDS: acetaminophen 1,000 MG/100 ML PIGGYBACK 400 MG IV (17:48)
[2025-03-16 18:11] LABS: SARS-CoV-2 PCR NEGATIVE (Negative)
[2025-03-16 18:33] LABS: Reflex Lactate Order REFLEX LACTIC ORDERD
[2025-03-16 18:35] LABS: NT Pro B Type Natriuretic Pept 329 pg/mL (0-125); Procalcitonin 1.28 ng/mL (0-0.5)
[2025-03-16 18:36] LABS: Glucose Urine UA 3+ (Normal); Nitrate Urine Positive (Negative); Specific Gravity, Urine 1.026 (1.005-1.030)
[2025-03-16 18:39] LABS: Universal Test for UA Present (0)
[2025-03-16 18:43] LABS: Respiratory Syncytial Virus Ce Positive (Negative)
[2025-03-16 18:47] LABS: Alanine Aminotransferase 16 U/L (0-41); Albumin Level 3.9 g/dL (3.5-5.2); Alkaline Phosphatase 68 U/L (40-130); Anion Gap 27.9 (5-19); Aspartate Amino Transferase 24 U/L (0-40); Blood Urea Nitrogen 20 mg/dL (8-23); Calcium 9.5 mg/dL (8.5-10.5); Carbon Dioxide 19 mmol/L (22-29); Chloride 94 mmol/L (98-107); Globulin 3.1 g/dL (1.3-4.6); Glucose 234 mg/dL (65-115); Osmolality Calculated 294 mOsm/kg (285-295); Potassium 3.9 mmol/L (3.5-5.1); Sodium 137 mmol/L (136-145); Total Protein 7.0 g/dL (6.6-8.7)
[2025-03-16 19:01] LABS: UA Slide Review UA Slide Review Perf
--- OUTSIDE RECORDS SUMMARY | 2025-03-16 19:13 | XMS_ITS | Data Portability ---
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 It bothers him with all his ADLs. I reviewed all the work up with him in detail. [email or web address] Not available 01/29/2023 18:02:41 08/06/2023 08/06/2023 68 y/m seen in clinic for follow up of tremor which started in R hand after stroke in 2013 and over the last 1 yr it has appeared in L hand too. It bothers him with all his ADLs. He does not think Sinemet has helped. I will wean off Sinemet over a week. I will see him in clinic in a month. [email or web address] Not available 08/06/2023 17:01:57 09/18/2023 09/18/2023 68 y/m seen in clinic for follow up of tremor which started in R hand after stroke in 2013 and over the last 1 yr it has appeared in L hand too. It bothers him with all his ADLs. He stopped Sinemet for 3 weeks and he could not tell difference but noticed tremor was worse. Now he is back on it. [email or web address] Not available 09/18/2023 17:06:05 12/19/2023 12/19/2023 68 y/m seen in clinic for follow up of tremor which started in R hand after stroke in 2013 and over the last 1 yr it has appeared in L hand too. It bothers him with all his ADLs. He stopped Sinemet for 3 weeks and he could not tell difference but noticed tremor was worse. Now he is back on it. Not available 12/19/2023 16:07:02 06/02/2024 06/02/2024 68 y/m seen in clinic for follow up of tremor which started in R hand after stroke in 2013 and over the last 1 yr it has appeared in L hand too. It bothers him with all his ADLs. He stopped Sinemet for 3 weeks and he could not tell difference but noticed tremor was worse. Now he is back on it. [email or web address] Not available 05/29/2024 14:16:05 Plan of Treatment Reminders Order Date Submit Date Provider Last Modified By Organization Details Last Modified Time Details Appointments None record ed. Lab None record ed. Referral None record ed. Procedures None record ed. Surgeries None record ed. Imaging None record ed. Medication Orders None record ed. Patient TargetsNo targets recorded. Patient InstructionsNo instructions recorded. Reason for Referral None Reported. Problems Name Problem SNOMED Code Status Onset Date Resolution Date Notes Provider Name and Address Organization Details Recorded Time Chronic obstructive pulmonary disease 22371509 Active 2022 Zaida gan [facility] 3 14:50:27 Diabetes mellitus 35603211 Active 2022 Zaida gan [facility] 3 14:50:32 Essential hypertension 24522534 Active 2022 Zaida gan [facility] 3 14:50:37 Cerebrovascula r accident 257975373 Active 2022 Zaida gan [facility] 3 14:50:40 Parkinson's disease 15175413 Active 2022 Zaida gan [facility] 3 16:39:11 Dyspnea 373382586 Active 2022 Zaida gan [facility] 16:39:17 Tremor 05556329 [facility] Problem Notes None recorded. Procedures Surgical History Date Name Laterality Status Provider Name and Address Organization Details Recorded Time 12/11/19 Excision of Skin Cancer completed [facility] 12/19/2023 15:38:52 Sinus Surgery completed Zaida Slaughter [facility] 07/20/2022 14:51:44 Excision of Skin Cancer completed Zaida Slaughter [facility] 07/20/2022 14:51:39 [facility] 14:51:54 implantation of insertable loop recorder completed [facility] 08/06/2023 16:24:47 Imaging Results None recorded. Procedure Notes None recorded. Medical Equipment None Reported. Allergies Allergen ID Allergen Name Allergen Category Reaction Reaction Severity Criticality Documentation Date Start Date Code Code System Note Provider Name and Address Organization Details Recorded Time 522864 aspirin medicatio n respirato ry distress severe Not available 07/20/2022 1191 Rx[facility] 14:[facility] Medications Name Sig Start Date Stop Date Status Note LastModified by Organization Details LastModified Time albuterol sulfate 0.63 mg/3 mL solution for nebulizat ion Inhale 3 mL every day by inhalati on route. 08/05 completed changed to Vlad by pcp Not Available Not Available Not Available primidone 50 mg tablet TAKE THREE TABLETS BY MOUTH EVERY MORNING & 5 TABLETS EVERY NIGHT AT BEDTIME 2024 active Not Available Not Available Not Avai lable albuterol sulfate 2.5 mg/3 mL (0.083 %) solution for nebulizat ion Inhale 3 mL 3 times a day by nebuliza tion route. active [facility] Not Available Not Available No t Available carbidopa 25 mg-levodo pa 250 mg tablet TAKE ONE TABLET BY MOUTH THREE TIMES DAILY dose increase 07/20 completed Not Available Not Available Not Available minocycli ne 100 mg capsule TAKE ONE CAPSULE BY MOUTH TWICE DAILY FOR FOURTEEN DAYS 07/20 completed Not Available Not Available Not Available prednison e 5 mg tablet TAKE ONE TABLET BY MOUTH EVERY DAY OR DIRECTED active Not Available Not Available No t Available clopidogr el 75 mg tablet TAKE 1 TABLET BY MOUTH EVERY DAY 2024 active Not Available Not Available Not Avai lable levothyro xine 75 mcg tablet TAKE ONE TABLET BY MOUTH DAILY active Not Available Not Available No t Available lorazepam 0.5 mg tablet TAKE 1/2 TO 1 TABLET BY MOUTH TWICE DAILY NEEDED FOR ANXIETY 07/20 completed Not Available Not Available Not Available lisinopri l 10 mg tablet TAKE ONE TABLET BY MOUTH EVERY DAY active Not Available Not Available No t Available carbidopa 10 mg-levodo pa 100 mg tablet TAKE ONE TABLET BY MOUTH THREE TIMES DAILY 07/20 completed Not Available Not Available Not Available budesonid e 0.5 mg/2 mL suspensio n for nebulizat ion Inhale 2 mL twice a day by nebuliza tion route. active Not Available Not Available No t Available ergocalci ferol (vitamin D2) 1,250 mcg (50,000 unit) capsule TAKE ONE CAPSULE BY MOUTH EVERY WEEK active Not Available Not Available No t Available carbidopa 25 mg-levodo pa 100 mg tablet Take 1.5 tablets TID 12/18 completed changed to primidon e. Not Available Not Available Not Available glipizide 5 mg tablet TAKE TWO TABLETS BY MOUTH TWICE DAILY with meals FOR blood sugar active Not Available Not Available No t Available escitalop ba 20 mg tablet TAKE ONE TABLET BY MOUTH EVERY DAY active Not Available Not Available No t Available rosuvasta tin 10 mg tablet TAKE ONE TABLET BY MOUTH EVERY DAY active Not Available Not Available No t Available arformote rol 15 mcg/2 mL solution for nebulizat ion Inhale 2 mL twice a day by inhalati on route. active Not Available Not Available No t Available Daliresp 500 mcg tablet Take 1 tablet every day by oral route. active Not Available Not Available No t Available Yupelri 175 mcg/3 mL solution for nebulizat ion Inhale 3 mL every day by nebuliza tion route. active Not Available Not Available No t Available Vitals Date Recorded Body height Body mass index (BMI) Body weight Oxygen saturation Heart rate Systolic And Diastolic Systolic And Diastolic Provider Name and Address Organization Details Last Updated DateTime 4 185.42 cm 26 kg/m2 80516.7 g 97 % 92 /min 148/70 mm[Hg] 136/72 mm[Hg] [facility] 4 16:29:16 Date Recorded Body height Body mass index (BMI) Body weight Heart rate Respiratory rate Oxygen saturation Systolic And Diastolic Provider Name and Address Organization Details Last Updated DateTime 4 185.42 cm 26 kg/m2 89894.4 g 74 /min 18 /min 98 % 124/76 mm[Hg] Zaida Slaughter [facility] 4 17:02:16 Date Recorded Body height Body mass index (BMI) Body weight Oxygen saturation Heart rate Systolic And Diastolic Provider Name and Address Organization Details Last Updated DateTime 4 185.42 cm 25.8 kg/m2 07682.6 1 g 95 % 83 /min 120/78 mm[Hg] [facility] 4 15:32:43 Date Recorded Body height Body mass index (BMI) Body weight Heart rate Oxygen saturation Systolic And Diastolic Provider Name and Address Organization Details Last Updated DateTime 3 185.42 cm 25.5 kg/m2 31781.3 3 g 89 /min 98 % 138/76 mm[Hg] [facility] 3 16:42:49 Social History Question Answer Notes LastModified by Mydishizat ion Details LastModified Time Tobacco Smoking Status Former Smoker quit 15 years ago Zaida Slaughter [facility] 07/20/2022 14:51:08 What Is The Highest Grade Or Level Of School You Have Completed Or The Highest Degree You Have Received? [id number] [email or web address] Information not available 07/20/2022 What Was The Date Of Your Most Recent Tobacco Screening? 01/29/2023 [email or web address] Information not available 01/29/2023 What Is Your Relationship Status? [email or web address] Information not available 07/20/2022 Sex: Unknown Functional Status Question Answer Note LastModified by Organizat ion Details LastModified Time Do you use any illicit or recreational drugs? No Information not available 07/20/2022 Do you or have you ever used any other forms of tobacco or nicotine? No [email or web address] Information not available 07/20/2022 What is your level of alcohol consumption? None [email or web address] Information not available 07/20/2022 Are you currently employed? No retired [email or web address] Information not available 07/20/2022 Mental Status None recorded. Family History Relationship Description Onset Age of this Age Resolved Age Notes LastModified by Organization Details LastModified Time Father No current problems or disability [email or web address] Not available 07/02 14:50:49 Mother No current problems or disability [email or web address] Not available 07/02 14:50:49 Medical History Condition Response Diabetes Y Stroke Y Hypertension Y COPD Y Past Encounters Encounter ID Performer Location Encounter Start Date Encounter Closed Date Diagnosis/Indication Diagnosis SNOMED-CT Code Diagnosis ICD10 Code Diagnosis IMO Codes Diagnosis Note [id number] MD [facility] [address] [place] [address] [place] [address] 07/20/2022 14:45:52 07/20/2022 16:25:33 History of cerebrovascular accident 257684137 Z86.73 - will do stroke work up- make decision on starting antiplatel et once stroke work up is complete- will do MR brain, MRA H&N, TTE and labs- he is allergic to aspirin (stopped breathing) - statin for secondary stroke prevention - I discussed in detail stroke symptoms, how to recognize them and how to respond. I also educated about stroke secondary risk factors and how to control and importance of healthy diet and exercise. - patient will follow up with PCP for management of secondary stroke risk factors Parkinson's disease 9613 1692 G20 - he could not tolerate sinemet 10/100 due to nausea- He denies FH of tremor- R sided PD vs Atypical PD like PSP given limitation of vertical gaze- component of R sided spasticity from CVA also making tremor worse on R side- - will start Sinemet 25/100 1/2 tab once a day for a week and then bid for a week and then tid for a week and then 1-.5-.5 tid for a week and then 1-1-.5 tid for a week and then 1-1-1 tid educated in detail about side effects incl sleepiness , nausea, vomiting, lightheade dness. Advised to take empty stomach (30 minutes before food or 2 hours after food)- will do MR brain and labs- I discussed in detail diagnosis and work up plan. I also discussed Km scan and its use in diagnosis of PD- asked to notify if any questions, concerns or medication side effects.- educated about Parkinson disease,- Explained treatment options, medical and surgical, and side effects of medication s- discussed importance of PT and Rock Steady boxing. 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 normal atrial size- make decision on starting antiplatel et once stroke work up is complete- reviewed MR brain, MRA H&N, TTE and labs- he is allergic to aspirin (stopped breathing) - statin for secondary stroke prevention - I discussed in detail stroke symptoms, how to recognize them and how to respond. I also educated about stroke secondary risk factors and how to control and importance of healthy diet and exercise.- patient will follow up with PCP for management of secondary stroke risk factors Parkinson's disease 5060 0869 G20 - R sided PD, noted cogwheelin g also on L side which is not affected by stroke.- component of R sided spasticity from CVA also making tremor worse on R side- on Sinemet 25/100 1 tab tid educated in detail about side effects incl sleepiness , nausea, vomiting, lightheade dness. Advised to take empty stomach (30 minutes before food or 2 hours after food)- I discussed in detail diagnosis and work up plan. I also discussed Km scan and its use in diagnosis of PD- will inc Sinemet to 1.5 tabs QID- asked to notify if any questions, concerns or medication side effects.- educated about Parkinson disease,- Explained treatment options, medical and surgical, and side effects of medication s- discussed importance of PT and Rock Steady boxing.- - He denies FH of tremor [id number] MD [facility] [address] [place] [address], [facility] [place] [address] 01/29/2023 16:31:34 01/29/2023 18:10:29 History of cerebrovascular accident 151800254 Z86.73 - RSW as deficit from CVA in 2013-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 I also educated about stroke secondary risk factors and how to control and importance of healthy diet and exercise.- patient will follow up with PCP for management of secondary stroke risk factors Parkinson's disease 4908 4780 G20.A1 - R sided PD, noted cogwheelin g also on L side which is not affected by stroke.- component of R sided spasticity from CVA also making tremor worse on R side- on Sinemet 25/100 1.5 tab Qid educated in detail about side effects incl sleepiness , nausea, vomiting, lightheade dness. Advised to take empty stomach (30 minutes before food or 2 hours after food)- I discussed in detail diagnosis and work up plan. 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 He has ILR now.- reviewed TTE- MR brain showed punctate area of diffusion restrictio n in R cerebellum but multiple areas of old stroke in b/l cerebral hemisphere s indicating embolic ischemic strokes of unknown source- make decision on starting antiplatel et once stroke work up is complete- reviewed MR brain, MRA H&N, TTE and labs- he is allergic to aspirin (stopped breathing) - Plavix, statin for secondary stroke prevention - I discussed in detail stroke symptoms, how to recognize them and how to respond. I also educated about stroke secondary risk factors and how to control and importance of healthy diet and exercise.- patient will follow up with PCP for management of secondary stroke risk factors Parkinson's disease 4904 9000 G20.A1 - R sided PD, noted cogwheelin g also on L side which is not affected by stroke.- component of R sided spasticity from CVA also making tremor worse on R side- on Sinemet 25/100 1.5 tab Qid educated in detail about side effects incl sleepiness , nausea, vomiting, lightheade dness. Advised to take empty stomach (30 minutes before food or 2 hours after food)- I discussed in detail diagnosis and work up plan. 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 He has ILR now.- reviewed TTE- MR brain showed punctate area of diffusion restrictio n in R cerebellum but multiple areas of old stroke in b/l cerebral hemisphere s indicating embolic ischemic strokes of unknown source- make decision on starting antiplatel et once stroke work up is complete- reviewed MR brain, MRA H&N, TTE and labs- he is allergic to aspirin (stopped breathing) - Plavix, statin for secondary stroke prevention - I discussed in detail stroke symptoms, how to recognize them and how to respond. I also educated about stroke secondary risk factors and how to control and importance of healthy diet and exercise.- patient will follow up with PCP for management of secondary stroke risk factors Parkinson's disease 4904 9000 G20.A1 Tremor 96569252 R25.1 - combinatio n of ET and PD but mainly ET- will stop Sinemet and start Primidone- cogwheelin g also on L side which is not affected by stroke. But I see component of ET too as tremor is more prominent with posture and action with kinetic component which does not go with PD tremor.- will start Primidone 25 mg bid for 2 weeks and then 50 mg bid for 2 weeks and then 50-100 mg bid for 2 weeks and then 100-150 mg bid, dsicussed side effects like dizziness and sedation- on Sinemet 25/100 1.5 tab Qid educated in detail about side effects incl sleepiness , nausea, vomiting, lightheade dness. Advised to take empty stomach (30 minutes before food or 2 hours after food)- I discussed in detail diagnosis and work up plan. 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 He has ILR now.- reviewed TTE- MR brain showed punctate area of diffusion restrictio n in R cerebellum but multiple areas of old stroke in b/l cerebral hemisphere s indicating embolic ischemic strokes of unknown source- make decision on starting antiplatel et once stroke work up is completed, stroke w/up completed. - reviewed MR brain, MRA H&N, TTE and labs- he is allergic to aspirin (stopped breathing) - Plavix, statin for secondary stroke prevention - I discussed in detail stroke symptoms, how to recognize them and how to respond. I also educated about stroke secondary risk factors and how to control and importance of healthy diet and exercise.- patient will follow up with PCP for management of secondary stroke risk factors Parkinson's disease 4904 9000 G20.A1 Tremor 85564372 R25.1 - ET and PD- off Sinemet and tremor did not get worse by stopping it- on Primidone 100-150 mg tid, will inc Primidone to 100-200 mg bid for 2 weeks and then 100-250 mg bid and then 150-250 mg bid, discussed side effects.- cog wheeling also on L side which is not affected by stroke. But I see component of ET too as tremor is more prominent with posture and action with kinetic component which does not go with PD tremor.- I discussed in detail diagnosis and work up plan. 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 He has ILR now.- reviewed TTE- MR brain showed punctate area of diffusion restrictio n in R cerebellum but multiple areas of old stroke in b/l cerebral hemisphere s indicating embolic ischemic strokes of unknown source- make decision on starting antiplatel et once stroke work up is completed, stroke w/up completed. - reviewed MR brain, MRA H&N, TTE and labs- he is allergic to aspirin (stopped breathing) - Plavix, statin for secondary stroke prevention - I discussed in detail stroke symptoms, how to recognize them and how to respond. I also educated about stroke secondary risk factors and how to control and importance of healthy diet and exercise.- patient will follow up with PCP for management of secondary stroke risk factors Parkinson's disease 4904 9000 G20.A1 Tremor 40254470 R25.1 - ET and PD- off Sinemet and tremor did not get worse by stopping it- on Primidone 100-150 mg tid, will inc Primidone to 100-200 mg bid for 2 weeks and then 100-250 mg bid and then 150-250 mg bid, discussed side effects.- cog wheeling also on L side which is not affected by stroke. But I see component of ET too as tremor is more prominent with posture and action with kinetic component which does not go with PD tremor.- I discussed in detail diagnosis and work up plan. I also discussed KM scan and its use in diagnosis of PD- asked to notify if any questions, concerns or medication side effects.- educated about Parkinson disease,- Explained treatment options, medical and surgical, and side effects of medication s- discussed importance of PT and Rock Steady boxing.- - He denies FH of tremor Health Concerns Section Related Observation LastModified by Organization Detai ls LastModified Time None Recorded Concern Status LastModified by Organization Details LastModified Time None Recorded Advance Directives Directive None Recorded Payers Insurance Date Sequence Insurance Name Policy Number Policy Roblero Covered Member ID Roblero Member ID Guarantor Name 05/31/2024 2 [employer] (MEDICARE SUPPLEMENT) Rigoberto Solano Aurna [id number] Rigoberto Hedrick Aruna 05/31/2024 1 [facility] (MEDICARE) Rigoberto Solano Aruna [id number] Rigobertojosie Hedrick Aruna Notes Date Note Type Note Provider Name and Address Organization Details Recorded Time 01/30/20 23 text/htm l 67 y/o right handed male referred for tremors and history of CVA.He had a stroke in 2013 when he got weak on R side and had slurring of speech. He is still weak on R side but dysarthria has resolved. He still has sometimes word finding difficulty which he attributes to history of stroke. He is allergic to Aspirin and was put on plavix and statin but he stopped taking plavix after few years. He is on crestor now. He said he could not breath after taking aspirin. start Aimovig 70 mg monthly injections, discussed side effects incl constipation and HTN and injection site reactionsHe has tremor in R hand after stroke but it has gotten worse over the years. He now has tremor in left hand too for a year. It is more with activities. He has noticed resting tremor in R hand too. It interefers with eating, drinking/holding a cup of water. He can not work on car.He tried carbidopa/levodopa 25-250mg tid. Per it made him sick and it did not help. He is allergic to aspirin. 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 INTERVAL HISTORY:Patient presents for follow up on CVA and PD. Danyel is accompanied by his . He is on Sinemet 25-100 1.5 tabs qid, rosuvastatin 10mg qhs and plavix 75mg qd. Patient reports his tremors are stable. He has slowness in his movements. Denies any falls since last visit. The tremor does not affect ADLs. His states no changes in tremor or gait. Prior meds:- Carbidopa/levodopa 25/250mg: ineffective STEADY FALL RISK: 5 on 01/29/23. LABS (08/29/22):-Tremor NORMAL-A1C 7.6%-LDL 96 -MRA HEAD W/O CONT (08/08/22) IMPRESSION:1. No acute vessel cutoff, significant stenosis or aneurysm of the [place]MRA NECK W/WO CONT (08/08/22) IMPRESSION:1. No significant carotid plaque or stenosis. Patent vertebral arteries. -MRI HEAD/BRAIN W/WO CONT (08/08/22) IMPRESSION:1. Punctate focus of acute stroke in the inferior right cerebellum.2. Multiple areas of old stroke including lacunar infarct in the rightcerebellum, encephalomalacia in the left frontal lobe with surrounding gliosis,and smaller focus in the right parietal lobe.3. Pansinusitis with postsurgical change to the medial araya of bilateralmaxillary sinuses.4. No abnormal enhancement on post contrast imaging. -TTE (08/29/22) Summary:1. Left ventricular ejection fraction, by visual estimation, is 60 to 65%.2. Normal global left ventricular systolic function.3. Borderline concentric left ventricular hypertrophy.4. Impaired relaxation pattern of LV diastolic filling.5. Mildly increased left ventricular septal thickness.6. Ventricular wall thickness is mildly increased.7. Normal right ventricular size and systolic function.8. Mild mitral valve regurgitation.9. Mild thickening of the anterior and posterior mitral valve leaflets.10. Mild aortic valve sclerosis without stenosis. -TTE (12/01/22) Summary:1. Left ventricular ejection fraction, by visual estimation, is 55 to 60%.2. Ventricular wall thickness is mildly increased.3. Normal right ventricle.4. Normal RV systolic function.5. Saline contrast bubble study was negative, with no evidence of anyintracardiac shunt.6. Intact interatrial and interventricular septa appear intact, with noechocardiographic evidence of intracardiac shunting.7. Diastolic function not assesed during this limited study. Eriberto Casas MD [address] [place], [address], [place] - [facility] 01/29/2023 18:05:00 08/06/19 24 text/htm l 67 y/o right handed male referred for tremors and history of CVA.He had a stroke in 2013 when he got weak on R side and had slurring of speech. He is still weak on R side but dysarthria has resolved. He still has sometimes word finding difficulty which he attributes to history of stroke. He is allergic to Aspirin and was put on plavix and statin but he stopped taking plavix after few years. He is on crestor now. He said he could not breath after taking aspirin. start Aimovig 70 mg monthly injections, discussed side effects incl constipation and HTN and injection site reactionsHe has tremor in R hand after stroke but it has gotten worse over the years. He now has tremor in left hand too for a year. It is more with activities. He has noticed resting tremor in R hand too. It interefers with eating, drinking/holding a cup of water. He can not work on car.He tried carbidopa/levodopa 25-250mg tid. Per it made him sick and it did not help. He is allergic to aspirin. 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 INTERVAL HISTORY:Patient presents for follow up on hx. CVA and PD. Patient is accompanied by his . He is on Sinemet 25-100 1.5 tabs qid, rosuvastatin 10mg qhs and plavix 75mg qd. Patient reports his no changes in his tremors. He has slowness in his movements. He has had one fall since last visit. He tripped over something in the garage. The tremor does not affect ADLs. Patient ambulates w/o assistance. He denies any problems with drooling or swallowing. Prior meds:- Carbidopa/levodopa 25/250mg: ineffective STEADY FALL RISK: 5 on 01/29/23. LABS (08/29/22):-Tremor NORMAL-A1C 7.6%-LDL 96 -MRA HEAD W/O CONT (08/08/22) IMPRESSION:1. No acute vessel cutoff, significant stenosis or aneurysm of the [place]MRA NECK W/WO CONT (08/08/22) IMPRESSION:1. No significant carotid plaque or stenosis. Patent vertebral arteries. -MRI HEAD/BRAIN W/WO CONT (08/08/22) IMPRESSION:1. Punctate focus of acute stroke in the inferior right cerebellum.2. Multiple areas of old stroke including lacunar infarct in the rightcerebellum, encephalomalacia in the left frontal lobe with surrounding gliosis,and smaller focus in the right parietal lobe.3. Pansinusitis with postsurgical change to the medial araya of bilateralmaxillary sinuses.4. No abnormal enhancement on post contrast imaging. -TTE (08/29/22) Summary:1. Left ventricular ejection fraction, by visual estimation, is 60 to 65%.2. Normal global left ventricular systolic function.3. Borderline concentric left ventricular hypertrophy.4. Impaired relaxation pattern of LV diastolic filling.5. Mildly increased left ventricular septal thickness.6. Ventricular wall thickness is mildly increased.7. Normal right ventricular size and systolic function.8. Mild mitral valve regurgitation.9. Mild thickening of the anterior and posterior mitral valve leaflets.10. Mild aortic valve sclerosis without stenosis. -TTE (12/01/22) Summary:1. Left ventricular ejection fraction, by visual estimation, is 55 to 60%.2. Ventricular wall thickness is mildly increased.3. Normal right ventricle.4. Normal RV systolic function.5. Saline contrast bubble study was negative, with no evidence of anyintracardiac shunt.6. Intact interatrial and interventricular septa appear intact, with noechocardiographic evidence of intracardiac shunting.7. Diastolic function not assessed during this limited study. Eriberto Casas MD [address] [place], [phone], [place] - [facility] 08/06/2023 17:02:15 09/18/19 24 text/htm l 67 y/o right handed male referred for tremors and history of CVA.He had a stroke in 2013 when he got weak on R side and had slurring of speech. He is still weak on R side but dysarthria has resolved. He still has sometimes word finding difficulty which he attributes to history of stroke. He is allergic to Aspirin and was put on plavix and statin but he stopped taking plavix after few years. He is on crestor now. He said he could not breath after taking aspirin. start Aimovig 70 mg monthly injections, discussed side effects incl constipation and HTN and injection site reactionsHe has tremor in R hand after stroke but it has gotten worse over the years. He now has tremor in left hand too for a year. It is more with activities. He has noticed resting tremor in R hand too. It interefers with eating, drinking/holding a cup of water. He can not work on car.He tried carbidopa/levodopa 25-250mg tid. Per it made him sick and it did not help. He is allergic to aspirin. 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 INTERVAL HISTORY:Patient presents for follow up on hx. CVA and PD. Patient is accompanied by his . He weaned off Sinemet, tremors got worse. He went back on Sinemet one week ago. He is on Sinemet 25/100mg 1.5 tabs TID. Prior meds:- Carbidopa/levodopa 25/250mg: ineffective STEADY FALL RISK: 5 on 01/29/23. LABS (08/29/22):-Tremor NORMAL-A1C 7.6%-LDL 96 -MRA HEAD W/O CONT (08/08/22) IMPRESSION:1. No acute vessel cutoff, significant stenosis or aneurysm of the [place]MRA NECK W/WO CONT (08/08/22) IMPRESSION:1. No significant carotid plaque or stenosis. Patent vertebral arteries. -MRI HEAD/BRAIN W/WO CONT (08/08/22) IMPRESSION:1. Punctate focus of acute stroke in the inferior right cerebellum.2. Multiple areas of old stroke including lacunar infarct in the rightcerebellum, encephalomalacia in the left frontal lobe with surrounding gliosis,and smaller focus in the right parietal lobe.3. Pansinusitis with postsurgical change to the medial araya of bilateralmaxillary sinuses.4. No abnormal enhancement on post contrast imaging. -TTE (08/29/22) Summary:1. Left ventricular ejection fraction, by visual estimation, is 60 to 65%.2. Normal global left ventricular systolic function.3. Borderline concentric left ventricular hypertrophy.4. Impaired relaxation pattern of LV diastolic filling.5. Mildly increased left ventricular septal thickness.6. Ventricular wall thickness is mildly increased.7. Normal right ventricular size and systolic function.8. Mild mitral valve regurgitation.9. Mild thickening of the anterior and posterior mitral valve leaflets.10. Mild aortic valve sclerosis without stenosis. -TTE (12/01/22) Summary:1. Left ventricular ejection fraction, by visual estimation, is 55 to 60%.2. Ventricular wall thickness is mildly increased.3. Normal right ventricle.4. Normal RV systolic function.5. Saline contrast bubble study was negative, with no evidence of anyintracardiac shunt.6. Intact interatrial and interventricular septa appear intact, with noechocardiographic evidence of intracardiac shunting.7. Diastolic function not assessed during this limited study. Eriberto Casas MD [address] [place], [address], [place] - [facility] 09/18/2023 17:12:09 12/19/19 24 text/htm l 67 y/o right handed male referred for tremors and history of CVA.He had a stroke in 2013 when he got weak on R side and had slurring of speech. He is still weak on R side but dysarthria has resolved. He still has sometimes word finding difficulty which he attributes to history of stroke. He is allergic to Aspirin and was put on plavix and statin but he stopped taking plavix after few years. He is on crestor now. He said he could not breath after taking aspirin. start Aimovig 70 mg monthly injections, discussed side effects incl constipation and HTN and injection site reactionsHe has tremor in R hand after stroke but it has gotten worse over the years. He now has tremor in left hand too for a year. It is more with activities. He has noticed resting tremor in R hand too. It interferes with eating, drinking/holding a cup of water. He can not work on car.He tried carbidopa/levodopa 25-250mg tid. Per it made him sick and it did not help. He is allergic to aspirin. 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 INTERVAL HISTORY:Patient presents for follow up of CVA and PD. Currently on clopidogrel 75mg daily, rosuvastatin 10mg daily, and primidone 100mg-150mg bid. Per patient is not for sure if primidone has helped much, but he can drink a soda now without spilling it. states he doesn't shake as much when he pick his cup up or when eating. She feels like there has been a little improvement in tremors. Patient denies any new numbness or weakness. Prior meds:- Carbidopa/levodopa 25/250mg: ineffective STEADY FALL RISK: 5 on 01/29/23. LABS (08/29/22):-Tremor NORMAL-A1C 7.6%-LDL 96 -MRA HEAD W/O CONT (08/08/22) IMPRESSION:1. No acute vessel cutoff, significant stenosis or aneurysm of the [place].-MRA NECK W/WO CONT (08/08/22) IMPRESSION:1. No significant carotid plaque or stenosis. Patent vertebral arteries. -MRI HEAD/BRAIN W/WO CONT (08/08/22) IMPRESSION:1. Punctate focus of acute stroke in the inferior right cerebellum.2. Multiple areas of old stroke including lacunar infarct in the rightcerebellum, encephalomalacia in the left frontal lobe with surrounding gliosis,and smaller focus in the right parietal lobe.3. Pansinusitis with postsurgical change to the medial araya of bilateralmaxillary sinuses.4. No abnormal enhancement on post contrast imaging. -TTE (08/29/22) Summary:1. Left ventricular ejection fraction, by visual estimation, is 60 to 65%.2. Normal global left ventricular systolic function.3. Borderline concentric left ventricular hypertrophy.4. Impaired relaxation pattern of LV diastolic filling.5. Mildly increased left ventricular septal thickness.6. Ventricular wall thickness is mildly increased.7. Normal right ventricular size and systolic function.8. Mild mitral valve regurgitation.9. Mild thickening of the anterior and posterior mitral valve leaflets.10. Mild aortic valve sclerosis without stenosis. -TTE (12/01/22) Summary:1. Left ventricular ejection fraction, by visual estimation, is 55 to 60%.2. Ventricular wall thickness is mildly increased.3. Normal right ventricle.4. Normal RV systolic function.5. Saline contrast bubble study was negative, with no evidence of anyintracardiac shunt.6. Intact interatrial and interventricular septa appear intact, with noechocardiographic evidence of intracardiac shunting.7. Diastolic function not assessed during this limited study. Eriberto Casas MD [address] [place], [address], [place] - [facility] 12/19/2023 16:07:12 06/03/19 25 text/htm l INITIAL INTAKE: 67 y/o right handed male referred for tremors and history of CVA.He had a stroke in 2013 when he got weak on R side and had slurring of speech. He is still weak on R side but dysarthria has resolved. He still has sometimes word finding difficulty which he attributes to history of stroke. He is allergic to Aspirin and was put on plavix and statin but he stopped taking plavix after few years. He is on crestor now. He said he could not breath after taking aspirin. start Aimovig 70 mg monthly injections, discussed side effects incl constipation and HTN and injection site reactionsHe has tremor in R hand after stroke but it has gotten worse over the years. He now has tremor in left hand too for a year. It is more with activities. He has noticed resting tremor in R hand too. It interferes with eating, drinking/holding a cup of water. He can not work on car.He tried carbidopa/levodopa 25-250mg tid. Per it made him sick and it did not help. He is allergic to aspirin. 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 INTERVAL HISTORY:Patient presents for follow up of CVA and PD. Current medications: clopidogrel 75mg qd and primidone 150mg-250mg bid. Prior meds:- Carbidopa/levodopa 25/250mg: ineffective STEADY FALL RISK: 5 on 01/29/23. LABS (08/29/22):-Tremor NORMAL-A1C 7.6%-LDL 96 -MRA HEAD W/O CONT (08/08/22) IMPRESSION:1. No acute vessel cutoff, significant stenosis or aneurysm of the [place].-MRA NECK W/WO CONT (08/08/22) IMPRESSION:1. No significant carotid plaque or stenosis. Patent vertebral arteries. -MRI HEAD/BRAIN W/WO CONT (08/08/22) IMPRESSION:1. Punctate focus of acute stroke in the inferior right cerebellum.2. Multiple areas of old stroke including lacunar infarct in the rightcerebellum, encephalomalacia in the left frontal lobe with surrounding gliosis,and smaller focus in the right parietal lobe.3. Pansinusitis with postsurgical change to the medial araya of bilateralmaxillary sinuses.4. No abnormal enhancement on post contrast imaging. -TTE (08/29/22) Summary:1. Left ventricular ejection fraction, by visual estimation, is 60 to 65%.2. Normal global left ventricular systolic function.3. Borderline concentric left ventricular hypertrophy.4. Impaired relaxation pattern of LV diastolic filling.5. Mildly increased left ventricular septal thickness.6. Ventricular wall thickness is mildly increased.7. Normal right ventricular size and systolic function.8. Mild mitral valve regurgitation.9. Mild thickening of the anterior and posterior mitral valve leaflets.10. Mild aortic valve sclerosis without stenosis. -TTE (12/01/22) Summary:1. Left ventricular ejection fraction, by visual estimation, is 55 to 60%.2. Ventricular wall thickness is mildly increased.3. Normal right ventricle.4. Normal RV systolic function.5. Saline contrast bubble study was negative, with no evidence of anyintracardiac shunt.6. Intact interatrial and interventricular septa appear intact, with noechocardiographic evidence of intracardiac shunting.7. Diastolic function not assessed during this limited study. Eriberto Casas MD [address] [place], [address], [place] - [facility] 06/16/2024 14:28:51
--- OUTSIDE RECORDS SUMMARY | 2025-03-16 19:13 | XMS_ITS | Clinical Summary ---
Author Organization [facility] Address [address] 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
--- OUTSIDE RECORDS SUMMARY | 2025-03-16 19:14 | XMS_ITS | Patient Health Record ---
Author Organization 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 Role Phone [facility] Primary Care Provider [phone] [facility] Unavailable Unavailable Allergies Allergen (clinical drug ingredient) Drug/Non Drug Allergy documented on EMR Reaction Allergy Type Onset Date Status Amoxicillin-Pot Clavulanate , Drug Allergy Active aspirin Aspirin , Drug Allergy Active ceftriaxone Ceftriaxone , Drug Allergy Act yulissa ciprofloxacin Ciprofloxacin , Drug Allergy Active doxycycline Doxycycline , Drug Allergy Act yulissa Results Component Value Reference Range Flag Notes CBC w\ Auto Diff [id number] Reviewed date:10/21/2024 11:21:44 AM Interpretation:Abnormal Performing Lab: Notes/Report: Diagnosis Description: Essential (primary) hypertension WBC 9.5 4.5-11.0 X10'3 RBC 5.22 4.50-5.90 X10'6 Hgb 15.9 13.5-17.5 G/DL Hct 48.7 41.0-53.0 % MCV 93.3 80.0-100.0 FL MCH 30.5 27.0-31.0 PG MCHC 32.6 31.0-37.0 G/DL Platelet 213 150-400 X10'3 RDW-SD 45.7 35.0-49.0 FL RDW-CV 13.4 12.2-15.6 % MPV 10.3 9.2-12.0 FL Neutro Auto% 50.4 40.0-70.0 % Lymph Auto% 29.5 22.0-44.0 % [place] Auto% 8.5 3.0-7.0 % HI Eos Auto% 9.8 2.0-4.0 % HI Baso Auto% 1.1 0.0-1.0 % HI Imm Gran% .7 .0-.4 % HI Neutro Abs 4.78 .80-7.70 Absolute Neutrophil Count 4780 NA Lymph Abs 2.80 .10-4.10 [place] Abs .81 .20-1.00 Eos Abs .93 .00-.40 HI Baso Abs .10 .00-.20 Imm Gran Abs .07 .00-.10 NRBC# .00 .00-.20 NRBC% .00 .00-.20 /100 int act WBC's Comprehensive Metabolic Pane l (CMP) [id number] Reviewed date:10/21/2024 11:21:44 AM Interpretation:Abnormal Performing Lab: Notes/Report: Diagnosis Description: Essential (primary) hypertension Glucose Serum 128 71-110 MG/DL HI Testing p erformed at [facility], [address] [place] [address] [place] [address]. CLIA ID#: [id number] BUN 14 7-21 MG/DL Creat 1.04 .57-1.17 MG/DL Use of this assay is not recommended for patients undergoing treatment with phenindione, due to the potential for falsely depressed results. D-rsoqjq-g-benzoquinone imine (NAPQI) is a metabolite of acetaminophen, NAPQI concentrations of apparoximately 10 mg/L correlation to toxic levels of acetaminophen demonstrates a greater than or equil to 10% change in results. NAPQI concentrations greater than this may lead to falsely depressed results for patient samples. GFR 77.8 NA Calculation pe rformed from GFR calculator provided by the [employer]. Glomerular Filtration rate(GRF) is the best overall index of kidney function. Normal GFR varies according to age,sex, body size, and declines with age. The National Kidney Foundation recommends using the CKD-EPI Creatinine Equation(2020) to estimate GFR. BUN/Creat Ratio 13.5 12.0-20.0 % Total Protein 6.7 5.8-8.0 G/DL Albumin 4.5 3.2-4.8 G/DL Globulin 2.2 2.3-3.5 G/DL LOW Alb/Glob 2.0 0.8-2.2 Calcium 9.3 8.7-10.4 MG/DL Sodium 140 136-145 MMOL/L Potassium 4.2 3.5-5.1 MMOL/L Chloride 100 98-107 MMOL/L CO2 27.4 20.0-31.0 MMOL/L Anion Gap 17 5-15 HI Alk Phos 55 46-116 Bili Total .4 .3-1.2 MG/DL Use of this assay is not recommended for patients undergoing treatment with eltrombopag due to the potential for falsely elevated results. 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 >7.0 % diabetics. EAG 189 NA Estimated Aver age Glucose(EAG). Lipid Panel Reflex DLDL 8006 1, 85534 Reviewed date:10/21/2024 11:21:44 AM Interpretation:Abnormal Performing Lab: Notes/Report: Diagnosis Description: Essential (primary) hypertension Trig 177 NA Very high >=500 High 200-499 0-4 yr 22-99 Adults: >20yrs 5-9 yr 32-105 15-19 yr 37-148 Children: Female Desirable <150 10-14 yr 37-131 Borderline High 150-199 Classification Guidelines:Triglycerides Children: Male 0-4 yr 34-112 15-19 yr 39-132 5-9 yr 30-101 10-14 yr 32-125 Chol 144 <=200 MG/DL HDL 35 30-72 MG/DL 10-14y 37-74 >=20y 40-59 Female: 10-14y 37-70 15-19y 35-74 5-9y 38-75 Male: 5-9y 36-73 Reference Ranges:HDL >=20y 40-59 15-19y 30-63 CH/HDL 4.1 0.0-4.9 RATIO LDL 73 0-130 MG/DL LDL result is inaccurate , if Trig is >400 mg/dl. See DLDL result. PSA Medicare Screening--G010 3 Reviewed date:10/21/2024 11:21:44 AM Interpretation:High Performing Lab: Notes/Report: Diagnosis Description: Elevated prostate specific antigen [PSA] PSA 10.69 .00-4.00 NG/ML HI PSA concen trations, regardless of the value, should not be interpreted as definitive evidence for the presence or absence of prostate cancer. CBC w\ Auto Diff [id number] Reviewed date:06/24/2024 10:20:05 AM Interpretation: Performing Lab: Notes/Report: Diagnosis Description: Essential (primary) hypertension WBC 10.1 4.5-11.0 X10'3 RBC 4.91 4.50-5.90 X10'6 Hgb 14.6 13.5-17.5 G/DL Hct 45.8 41.0-53.0 % MCV 93.3 80.0-100.0 FL MCH 29.7 27.0-31.0 PG MCHC 31.9 31.0-37.0 G/DL Platelet 271 150-400 X10'3 RDW-SD 46.4 35.0-49.0 FL RDW-CV 13.5 12.2-15.6 % MPV 10.3 9.2-12.0 FL Neutro Auto% 54.6 40.0-70.0 % Lymph Auto% 28.3 22.0-44.0 % [place] Auto% 7.1 3.0-7.0 % HI Eos Auto% 8.6 2.0-4.0 % HI Baso Auto% 0.9 0.0-1.0 % Imm Gran% .5 .0-.4 % HI Neutro Abs 5.52 .80-7.70 Absolute Neutrophil Count 5520 NA Lymph Abs 2.86 .10-4.10 [place] Abs .72 .20-1.00 Eos Abs .87 .00-.40 HI Baso Abs .09 .00-.20 Imm Gran Abs .05 .00-.10 NRBC# .00 .00-.20 NRBC% .00 .00-.20 /100 int act WBC's Comprehensive Metabolic Pane l (CMP) [id number] Reviewed date:06/24/2024 10:19:47 AM Interpretation: Performing Lab: Notes/Report: Diagnosis Description: Essential (primary) hypertension Glucose Serum 105 71-110 MG/DL Testing p erformed at [facility], [address] [place] [address] [place] [address]. CLIA ID#: [id number] BUN 11 7-21 MG/DL Creat .84 .57-1.17 MG/DL N-imjvic-f-benzoquinone imine (NAPQI) is a metabolite of acetaminophen, NAPQI concentrations of apparoximately 10 mg/L correlation to toxic levels of acetaminophen demonstrates a greater than or equil to 10% change in results. NAPQI concentrations greater than this may lead to falsely depressed results for patient samples. Use of this assay is not recommended for patients undergoing treatment with phenindione, due to the potential for falsely depressed results. GFR 94.3 NA Calculation pe rformed from GFR calculator provided by the National [employer]. Glomerular Filtration rate(GRF) is the best overall index of kidney function. Normal GFR varies according to age,sex, body size, and declines with age. The National Kidney Foundation recommends using the CKD-EPI Creatinine Equation(2020) to estimate GFR. BUN/Creat Ratio 13.1 12.0-20.0 % Total Protein 7.1 5.8-8.0 G/DL Albumin 4.4 3.2-4.8 G/DL Globulin 2.7 2.3-3.5 G/DL Alb/Glob 1.6 0.8-2.2 Calcium 9.8 8.7-10.4 MG/DL Sodium 138 136-145 MMOL/L Potassium 4.0 3.5-5.1 MMOL/L Chloride 99 98-107 MMOL/L CO2 29.3 20.0-31.0 MMOL/L Anion Gap 14 5-15 Alk Phos 54 46-116 Bili Total .3 .3-1.2 MG/DL Use of this assay is not recommended for patients undergoing treatment with eltrombopag due to the potential for falsely elevated results. AST/SGOT 17 15-37 UNIT/L ALT/SGPT 18 12-78 UNIT/L Osmo Serum,Calculated 286 280-300 MOSM/KG Hemoglobin A1c 31857 Reviewed date:06/24/2024 10:20:20 AM Interpretation: Performing Lab: Notes/Report: Diagnosis Description: Type 2 diabetes mellitus without complications Hgb A1c 7.7 3.8-6.4 % HI Interpretation Of Hgb A1c: 4.5-6.2 % nondiabetics. >7.0 % diabetics. EAG 174 NA Estimated Aver age Glucose(EAG). Lipid Panel Reflex DLDL 8006 1, 04602 Reviewed date:06/24/2024 10:20:31 AM Interpretation: Performing Lab: Notes/Report: Diagnosis Description: Mixed hyperlipidemia Trig 153 NA 5-9 yr 32-105 15-19 yr 37-148 0-4 yr 22-99 Adults: >20yrs High 200-499 Classification Guidelines:Triglycerides 15-19 yr 39-132 0-4 yr 34-112 Borderline High 150-199 10-14 yr 32-125 Children: Male 10-14 yr 37-131 Children: Female 5-9 yr 30-101 Desirable <150 Very high >=500 Chol 138 <=200 MG/DL HDL 33 30-72 MG/DL Reference Ranges:HDL 15-19y 35-74 10-14y 37-74 Female: 10-14y 37-70 5-9y 38-75 >=20y 40-59 15-19y 30-63 >=20y 40-59 5-9y 36-73 Male: CH/HDL 4.1 0.0-4.9 RATIO LDL 74 0-130 MG/DL LDL result is inaccurate , if Trig is >400 mg/dl. See DLDL result. Thyroid Stimulating Hormone (TSH) 21912 Reviewed date:06/24/2024 10:20:41 AM Interpretation: Performing Lab: Notes/Report: Diagnosis Description: Hypothyroidism, unspecified TSH 1.109 .358-3.740 MlU/ML Microalbumin (U) Random 8204 3 Reviewed date:06/24/2024 10:19:06 AM Interpretation: Performing Lab: Notes/Report: Diagnosis Description: Type 2 diabetes mellitus without complications Ur Microalbumin 31.0 .0-30.0 MG/L HI Ur Creat 197.3 40.0-278.0 MG/DL Mal/Crea/Ratio 15.7 .0-30.0 mg Alb/g Cr RA Factor 59512, 85885 Reviewed date:06/24/2024 10:19:32 AM Interpretation: Performing Lab: Notes/Report: Diagnosis Description: Rheumatoid arthritis with rheumatoid factor of multiple sites without organ or systems involvement Diagnosis Description: Hypothyroidism, unspecified RA Factor <3.5 .0-14.0 IU/mL Result less than 10 Iu/ml will be considered as Negative. PSA Medicare Screening--G010 3 Reviewed date:07/28/2024 04:47:58 PM Interpretation: Performing Lab: Notes/Report: Diagnosis Description: Elevated prostate specific antigen [PSA] PSA 13.22 .00-4.00 NG/ML HI PSA concen trations, regardless of the value, should not be interpreted as definitive evidence for the presence or absence of prostate cancer. Reason For Referral Reason diabetic eye exam mutual patient Diagnosis 1 Rheumatoid arthritis involving multiple sites with positive rheumatoid factor (M05.79) Diagnosis 2 Cerebrovascular acci dent (CVA) due to other mechanism (I63.89) Diagnosis 3 Type 2 diabetes patrick itus without complications (E11.9) Referral Organization [facility] Referring Provider First Name Danielle Referring Provider Last Name Duarte Referring Provider Speciality Nurse Zulema garcia Referred Provider Kameron Ardon Referred Provider Specialty Ophthalmolog y Referral Priority Routine Medications Medication SIG (Take, Route, Frequency, Duration) Notes Start Date End Date Status Furosemide 20 mg Tablet TAKE ONE TABLET BY MOUTH ONCE a day NEEDED FOR swelling; Duration: 30 Active Lisinopril 10 mg Tablet TAKE ONE TABLET BY MOUTH EVERY DAY; Duration: 30 Active Escitalopram Oxalate 20 mg Tablet TAKE ONE TABLET BY MOUTH EVERY DAY; Duration: 30 Active Levothyroxine Sodium 75 mcg Tablet TAKE ONE TABLET BY MOUTH EVERY DAY; Duration: 30 Active Carbidopa-Levodopa 25-100 MG Tablet Oral; Duration: 30 Days Not- Taking Potassium Chloride Amanda ER 10 mEq Tablet Extended Release TAKE ONE TABLET BY MOUTH with food ONCE a day with lasix; Duration: 30 Active Ativan 0.5 MG Tablet 1/2 to 1 tab Orally twice a day prn anxiety; Duration: 30 days 03/16/2022 Active Rosuvastatin Calcium 10 mg Tablet TAKE ONE TABLET BY MOUTH EVERY DAY; Duration: 30 Active Budesonide 0.5 MG/2ML Suspension USE 1 VIAL IN NEBULIZER TWICE DAILY (RINSE MOUTH AFTER EACH TREATMENT) Active traMADol HCl 50 mg Tablet TAKE ONE TABLE T BY MOUTH EVERY 4 HOURS NEEDED FOR SEVERE pain FOR 30 days; Duration: 30 01/22/2025 Active Clopidogrel Bisulfate 75 mg Tablet TAKE ONE TABLET BY MOUTH EVERY DAY; Duration: 30 Active Vitamin D (Ergocalciferol) 1.25 MG (41773 UT) Capsule TAKE ONE CAPSULE BY MOUTH EVERY WEEK; Duration: 30 Active Fluticasone Propionate 50 MCG/ACT Suspension 1 spray in each nostril Nasally Once a day; Duration: 30 days 07/03/2023 Active Yupelri 175 MCG/3ML Solution USE 1 VIAL IN NEBULIZER DAILY. do not mix with other medications Active Albuterol Sulfate (2.5 MG/3ML) 0.083% Nebulization Solution 3 ml as needed Inhalation every 6 hrs; Duration: 30 days Active Arformoterol Tartrate 15 MCG/2ML Nebulization Solution USE 1 VIAL IN NEBULIZER TWICE DAILY (MORNING AND EVENING) Active Roflumilast 500 MCG Tablet TAKE 1 TABLET BY MOUTH EVERY DAY; Duration: 30 Active predniSONE 5 mg Tablet TAKE ONE TABLET B Y MOUTH EVERY DAY OR DIRECTED; Duration: 30 Active Primidone 50 MG Tablet take 1/2 tab twic e daily for 14days, 1 tab twice for 14 days, 1 tab in the morning & 2 tabs in the evening for 14 days, then 2tabs in the morning and 3 tabs in the evening Oral; Duration: 54 Days Active glipiZIDE 10 mg Tablet TAKE ONE TABLET B Y MOUTH TWICE DAILY WITH FOOD FOR blood sugar; Duration: 60 Active Immunizations Vaccine Route Administration Date Status Comme nts Flucelvax Quadrivalent IM Intramuscular 02/26/2023 Administered [id number] Patient tolerated well. Flucelvax Quadrivalent Pres Free IM Intramuscular 01/20/2022 Administered [facility] [id number] 3 pt tolerated well/instructed to wait 20 min Flucelvax Trivalent, Syringe 0.5 mL, PF IM Intramuscular 01/21/2024 Administered supplied by [employer]/pt tolerated well/instructed to wait 20 min Flucelvax Trivalent, Syringe 0.5 mL, PF IM Intramuscular 01/19/2025 Administered supplied by [employer]/pt tolerated well/instructed to wait 20 min Prevnar 20 IM Intramuscular 01/20/2022 Administered [facility] [phone] pt tolerated well/instructed to wait 20 min Prevnar 20 IM Intramuscular 02/09/2025 Administered suppli ed by [employer]/pt tolerated well/instructed to wait 20 min Tdap IM Intramuscular 08/02/2023 Administered vaccin e supplied by [employer]/patient tolerated well/instructed to wait 20 min Social History Tobacco Use: Social History Observation Description Date Details (start date - stop date) Former Smoker NA - NA Social History Depression Screening Social Info Question Answer Notes depression screening findings Findings Negative (0 -4) PHQ-9 Little interest or p girma in doing things Not at all Feeling down, depressed, or hopeless Not at all Trouble falling or staying asleep, or sleeping t oo much Not at all Feeling tired or having little energy Not at all Poor appetite or overeating Not at all Feeling bad about yourself, or that you are a failure, or have let yourself or your family down Not at all Trouble concentrating on thi ngs, such as reading the newspaper or watching television Not at all Moving or speaking so slowly that other people could have noticed. Or the opposite ? being so fidgety or restless that you have been moving around a lot more than usual Not at all Thoughts that you would be b hamzah off , or of hurting yourself in some way Not at all Total Score 0 Drugs/Alcohol: Social Info Question Answer Notes Alcohol Screen (Audit-C) Did you have a drink containing alcohol in the past year? No Points 0 Interpretation Negative Drugs Have you used drugs other than those for medical reasons in the past 12 months? No Comprehensive Health Assessm ent Social Info Question Answer Notes *Social Determinants of Health Has lack of transportation kept you from medical appointments, meetings, work or from getting things needed for daily living? No Recently, have you worried t hat your food would run out before you got money to buy more? No Do you feel physically and e motionally safe where you currently live? Yes Are you worried about losing your housing? No Have you recently been marcos rned that your utilities would be turned off (electricity, gas, or water)? No Availability of resources to meet daily needs? Y es What is your current housing situation? I have h ousing How many members of your emanuel n family live with you? (Including yourself) 2 How many jobs do you work? 0 How often do you see or talk to people that you care about and feel close to? More than 5 times How stressed are you? Not at all Tobacco Use: Social Info Question Answer Notes Tobacco Control (Standard) Tobacco use: Former smoker How long has it been since you last smoked? Greater than 10 years Additional Details Category Social Info Options Details Drugs/Alcohol: Do you smoke marijuana? De nies Do you drink alcohol? No zzMigrated Social History Migrated Social History Smoking Status:Never smoked tobacco (finding) Section Notes: Depression screen completed 01/21/2024 score 0 09/15/2021 09/15/2021 09/15/2021 Depression screen completed 07/28/2022 score 1 Depression screen completed 07/28/2022 score 1 Depression screen completed 07/28/2022 score 1 Depression screen completed 07/28/2022 score 1 Depression screen completed 07/28/2022 score 1 Depression screen completed 07/28/2022 score 1 Depression screen completed 07/28/2022 score 1 Depression screen completed 07/28/2022 score 1 Depression screen completed 07/28/2022 score 1 Depression screen completed 07/28/2022 score 1 Depression screen completed 01/21/2024 score 0 Depression screen completed 01/21/2024 score 0 Depression screen completed 01/21/2024 score 0 Depression screen completed 01/21/2024 score 0 Depression screen completed 01/21/2024 score 0 Depression screen completed 01/21/2024 score 0 Depression screen completed 01/21/2024 score 0 Depression screen completed 01/21/2024 score 0 Depression screen completed 01/21/2024 score 0. PHQ9 09/19/2024 Depression screen completed 01/21/2024 score 0. PHQ9 09/19/2024 Depression screen completed 01/21/2024 score 0. PHQ9 09/19/2024 Depression screen completed 01/21/2024 score 0. PHQ9 09/19/2024 Depression screen completed 01/21/2024 score 0. PHQ9 09/19/2024 PHQ9/Tob 02/09/25 Depression screen completed 07/28/2022 score 1 Depression screen completed 07/28/2022 score 1 Depression screen completed 07/28/2022 score 1 Depression screen completed 07/28/2022 score 1 Depression screen completed 07/28/2022 score 1 Depression screen completed 01/21/2024 score 0 Depression screen completed 01/21/2024 score 0 Depression screen completed 01/21/2024 score 0 Depression screen completed 01/21/2024 score 0 Depression screen completed 01/21/2024 score 0 Depression screen completed 01/21/2024 score 0 Depression screen completed 01/21/2024 score 0. PHQ9 09/19/2024 Depression screen completed 01/21/2024 score 0. PHQ9 09/19/2024 Depression screen completed 01/21/2024 score 0. PHQ9 09/19/2024 Depression screen completed 01/21/2024 score 0. PHQ9 09/19/2024 PHQ9/Tob 02/09/25 Depression screen completed 07/28/2022 score 1 Depression screen completed 07/28/2022 score 1 Depression screen completed 07/28/2022 score 1 Depression screen completed 01/21/2024 score 0. PHQ9 09/19/2024 Depression screen completed 07/28/2022 score 1 Depression screen completed 07/28/2022 score 1 Depression screen completed 07/28/2022 score 1 Depression screen completed 07/28/2022 score 1 09/15/2021 09/15/2021 Problems Problem Type SNOMED Code ICD Code Onset Dates Problem Status W/U Status Risk Notes Problem Type II diabetes mellitus without complication (289634656) Type 2 diabetes mellitus without complications (E11.9) Active confirmed Problem Mixed hyperlipidemia (489327040) Mixed hyperlipidemia (E78.2) Active confirmed Problem Simple chronic bronchitis (03617950) Simple chronic bronchitis (J41.0) Active confirmed Problem Emphysema (78773385) Other emphysema (J43.8) Active confirmed Problem Type II diabetes mellitus without complication (632148830) Type 2 diabetes mellitus without complication, unspecified whether terminal make up operator insulin use (E11.9) Active confirmed Problem Anxiety (01400818) Anxiety (F41.9) Active confi rmed Problem COPD - Chronic obstructive pulmonary disease (06673873) Chronic obstructive pulmonary disease, unspecified COPD type (J44.9) Active confirmed Problem Osteoarthritis (496074721) Osteoarthritis, unspecified osteoarthritis type, unspecified site (M19.90) Active confirmed Problem Cerebrovascular accident (675164422) Cerebrovascular accident (CVA), unspecified mechanism (I63.9) Active confirmed Problem Screening for malignant neoplasm of prostate (761903768) Prostate cancer screening (Z12.5) Active confirmed Problem Parkinson disease (17047333) Parkinson disease (G20) Active confirmed Problem Chronic bronchitis (22073474) Chronic bronchitis, unspecified chronic bronchitis type (J42) Active confirmed Problem Acquired hypothyroidism (967138308) Acquired hypothyroidism (E03.9) Active confirmed Problem Rheumatoid arthritis (52760623) Rheumatoid arthritis involving multiple sites with positive rheumatoid factor (M05.79) Active confirmed Problem Pulmonary emphysema (96317462) Pulmonary emphysema, unspecified emphysema type (J43.9) Active confirmed Problem Cerebral infarction (007453214) Cerebral infarction, unspecified mechanism (I63.9) Active confirmed Problem Intention tremor (34064458) Intention tremor (G25.2) Active confirmed Problem Environmental allergy (448931741) Environmental allergies (Z91.09) Active confirmed Problem Cerebral infarction (disorder) (481085880) Cerebrovascular accident (CVA) due to other mechanism (I63.89) Active confirmed Problem Acute exacerbation of chronic obstructive pulmonary disease (818263654) Acute exacerbation of chronic obstructive pulmonary disease (J44.1) Active confirmed Problem Type 2 diabetes mellitus well controlled (543750351) Controlled diabetes mellitus type II without complication (E11.9) Active confirmed Problem Primary hypertension (28971914) Primary hypertension (I10) Active confirmed Problem Parkinson's disease (disorder) (17663715) Parkinson disease, symptomatic (G20.A1) Active confirmed Vital Signs Heart Rate 55 /min 02/09/2025 Temperature 97.4 degrees Fahrenheit 02/09/2025 Respiratory Rate 18 /min 02/09/2025 Height-cm 182.12 cm 02/09/2025 Blood pressure diastolic 80 mm Hg 02/09/2025 Oximetry 99 % 02/09/2025 Weight-kg 89.81 kg 02/09/2025 Height 71.7 in 02/09/2025 Blood pressure systolic 138 mm Hg 02/09/2025 Weight 198 lbs 02/09/2025 BMI 27.08 kg/m2 02/09/2025 Encounters Encounter Location Date Provider Diagnosis [facility] [address] [address] 04/28/2024 [facility] Chronic obstructive pulmonary disease, unspecified COPD type J44.9 ; Cerebral infarction, unspecified mechanism I63.9 ; Osteoarthritis, unspecified osteoarthritis type, unspecified site M19.90 and Knee pain M25.569 [facility] [address] [address] 05/26/2024 [facility] Acute exacerbation o f chronic obstructive pulmonary disease J44.1 ; Cerebrovascular accident (CVA), unspecified mechanism I63.9 ; Primary hypertension I10 ; Mixed hyperlipidemia E78.2 ; Type 2 diabetes mellitus without complications E11.9 ; Acquired hypothyroidism E03.9 ; Rheumatoid arthritis involving multiple sites with positive rheumatoid factor M05.79 and Elevated PSA R97.20 [facility] [address] [address] 06/23/2024 [facility] Rheumatoid arthritis involving multiple sites with positive rheumatoid factor M05.79 ; Acquired hypothyroidism E03.9 ; Type 2 diabetes mellitus without complications E11.9 ; Chronic obstructive pulmonary disease, unspecified COPD type J44.9 ; Primary hypertension I10 ; Elevated PSA R97.20 and Mixed hyperlipidemia E78.2 [facility] [address] [place] [address] 07/21/2024 [facility] Chronic obstructive pulmonary disease, unspecified COPD type J44.9 ; Type 2 diabetes mellitus without complications E11.9 and Elevated PSA R97.20 [facility] [address] [place] [address] 08/18/2024 [facility] Chronic obstructive pulmonary disease, unspecified COPD type J44.9 ; Rheumatoid arthritis involving multiple sites with positive rheumatoid factor M05.79 and Cerebrovascular accident (CVA), unspecified mechanism I63.9 [facility] [address] [place] [address] 09/19/2024 [facility] Chronic obstructive pulmonary disease, unspecified COPD type J44.9 ; Type 2 diabetes mellitus without complications E11.9 and Depression screen Z13.31 [facility] [address], [place] [id number] 10/20/2024 [facility] Primary hypertension I10 ; Acquired hypothyroidism E03.9 ; Chronic obstructive pulmonary disease, unspecified COPD type J44.9 ; Cerebral infarction, unspecified mechanism I63.9 ; Type 2 diabetes mellitus without complications E11.9 ; Elevated PSA R97.20 and Drug therapy continued Z79.899 [facility] [address] [place] [address] 11/17/2024 [facility] Rheumatoid arthritis involving multiple sites with positive rheumatoid factor M05.79 ; Chronic obstructive pulmonary disease, unspecified COPD type J44.9 and Shoulder pain M25.519 [facility] [address] [facility] [address] [place] [address] 12/15/2024 [facility] Rheumatoid arthritis involving multiple sites with positive rheumatoid factor M05.79 ; Cerebrovascular accident (CVA) due to other mechanism I63.89 ; Elevated PSA R97.20 ; Intention tremor G25.2 ; Type 2 diabetes mellitus without complications E11.9 and Shoulder pain M25.519 [facility] [address] [facility] [address] [place] [address] 01/19/2025 [facility] Encounter for immunization Z23 ; Chronic obstructive pulmonary disease, unspecified COPD type J44.9 and Cerebrovascular accident (CVA) due to other mechanism I63.89 [facility] [address] [facility] [address] [place] [address] 02/09/2025 [facility] Encounter for Medica re annual wellness exam Z00.00 ; Depression screening negative Z13.31 ; Depression screening Z13.31 ; Encounter for immunization Z23 ; Rheumatoid arthritis involving multiple sites with positive rheumatoid factor M05.79 ; Chronic obstructive pulmonary disease, unspecified COPD type J44.9 ; Encounter for administration of vaccine Z23 ; Primary hypertension I10 ; Cerebrovascular accident (CVA) due to other mechanism I63.89 and Type 2 diabetes mellitus without complications E11.9 [facility] [address] [facility] [place] [address] 03/31/2024 [facility] Type 2 diabetes mellitus without complication, unspecified whether penitentiary insulin use E11.9 and Chronic obstructive pulmonary disease, unspecified COPD type J44.9 [facility] [place] 04/09/2024 [facility] Type 2 diabetes mellitus without complication, unspecified whether penitentiary insulin use E11.9 and Chronic obstructive pulmonary disease, unspecified COPD type J44.9 [facility] [place] 05/09/2024 [facility] Type 2 diabetes mellitus without complication, unspecified whether terminal make up operator insulin use E11.9 and Chronic obstructive pulmonary disease, unspecified COPD type J44.9 [facility] [place] 06/18/2024 [facility] Type 2 diabetes mellitus without complication, unspecified whether terminal make up operator insulin use E11.9 and Rheumatoid arthritis involving multiple sites with positive rheumatoid factor M05.79 [facility] [place] 07/01/2024 Danielle War Chronic obstruct yulissa pulmonary disease, unspecified COPD type J44.9 and Osteoarthritis, unspecified osteoarthritis type, unspecified site M19.90 [facility] [place] 08/19/2024 [facility] Type 2 diabetes mellitus without complication, unspecified whether terminal make up operator insulin use E11.9 and Chronic obstructive pulmonary disease, unspecified COPD type J44.9 [facility] [place] 09/15/2024 Danielle War Chronic obstruct yulissa pulmonary disease, unspecified COPD type J44.9 and Osteoarthritis, unspecified osteoarthritis type, unspecified site M19.90 [facility] [place] 09/30/2024 [facility] Type 2 diabetes mellitus without complication, unspecified whether penitentiary insulin use E11.9 and Chronic obstructive pulmonary disease, unspecified COPD type J44.9 [facility] [place] 11/19/2024 [facility] Osteoarthritis, unspecified osteoarthritis type, unspecified site M19.90 and Chronic obstructive pulmonary disease, unspecified COPD type J44.9 [facility] [place] 12/02/2024 [facility] Type 2 diabetes mellitus without complication, unspecified whether penitentiary insulin use E11.9 and Chronic obstructive pulmonary disease, unspecified COPD type J44.9 [facility] [place] 12/31/2024 [facility] Type 2 diabetes mellitus without complication, unspecified whether terminal make up operator insulin use E11.9 and Osteoarthritis, unspecified osteoarthritis type, unspecified site M19.[address] [address] 02/02/[address] [facility] [place] 02/20/2025 [facility] Assessments Encounter Date Diagnosis (ICD Code) Assessment Notes Treatment Notes Treatment Clinical Notes Section Notes 03/31/2024 Type 2 diabetes mellitus without complication, unspecified whether terminal make up operator insulin use (ICD-10 - E11.9) 04/28/2024 Cerebral infarction, unspecified mechanism (ICD-10 - I63.9) plavix 05/09/2024 Type 2 diabetes mellitus without complication, unspecified whether terminal make up operator insulin use (ICD-10 - E11.9) 04/28/2024 Chronic obstructive pulmonary disease, unspecified COPD type (ICD-10 - J44.9) depomedrol/decadr on im continue meds/ud 05/26/2024 Cerebrovascular accident (CVA), unspecified mechanism (ICD-10 - I63.9) plavix 05/26/2024 Acute exacerbation of chronic obstructive pulmonary disease (ICD-10 - J44.1) z alessio depomedrol/decadr on im 06/18/2024 Type 2 diabetes mellitus without complication, unspecified whether penitentiary insulin use (ICD-10 - E11.9) 08/18/2024 Chronic obstructive pulmonary disease, unspecified COPD type (ICD-10 - J44.9) depomedrol/decadr on im 08/18/2024 Rheumatoid arthritis involving multiple sites with positive rheumatoid factor (ICD-10 - M05.79) 08/19/2024 Type 2 diabetes mellitus without complication, unspecified whether penitentiary insulin use (ICD-10 - E11.9) 09/15/2024 Chronic obstructive pulmonary disease, unspecified COPD type (ICD-10 - J44.9) 09/19/2024 Type 2 diabetes mellitus without complications (ICD-10 - E11.9) continue meds monitor bs 09/19/2024 Chronic obstructive pulmonary disease, unspecified COPD type (ICD-10 - J44.9) depomedrol/decadr on im 10/20/2024 Acquired hypothyroidism (ICD-10 - E03.9) levothyroxine tsh 10/20/2024 Primary hypertension (ICD-10 - I10) continue meds cbc cmp 11/17/2024 Chronic obstructive pulmonary disease, unspecified COPD type (ICD-10 - J44.9) 11/17/2024 Rheumatoid arthritis involving multiple sites with positive rheumatoid factor (ICD-10 - M05.79) depomedrol/decadr on im 11/19/2024 Osteoarthritis, unspecified osteoarthritis type, unspecified site (ICD-10 - M19.90) 12/15/2024 Rheumatoid arthritis involving multiple sites with positive rheumatoid factor (ICD-10 - M05.79) depomedrol/decadr on im 01/19/2025 Encounter for immunization (ICD-10 - Z23) flu shot 01/19/2025 Chronic obstructive pulmonary disease, unspecified COPD type (ICD-10 - J44.9) depomedrol/decadr on im 12/15/2024 Cerebrovascular accident (CVA) due to other mechanism (ICD-10 - I63.89) 12/31/2024 Type 2 diabetes mellitus without complication, unspecified whether terminal make up operator insulin use (ICD-10 - E11.9) 02/09/2025 Depression screening negative (ICD-10 - Z13.31) *Please list patient's current problem list with appropriate and specific ICD-10's.. Depression screening performed using PHQ-9 Depression Scale with a score less than 5. No treatment plan indicated at this time, and screenings will be performed as indicated. 02/09/2025 Encounter for Medicare annual wellness exam (ICD-10 - Z00.00) Discussed with patient health education topics including diet, exercise, safety, and healthy living principles. We have reviewed and updated pt's written recommendations for preventative services. Pt is due now for the following preventative services: Referrals and orders made as appropriate. see eval Diagnosis reconciliation performed and verified as listed in Assessments. *Please list patient's current problem list with appropriate and specific ICD-10's.. Depression screening performed using PHQ-9 Depression Scale with a score less than 5. No treatment plan indicated at this time, and screenings will be performed as indicated. 12/02/2024 Type 2 diabetes mellitus without complication, unspecified whether terminal make up operator insulin use (ICD-10 - E11.9) 09/30/2024 Type 2 diabetes mellitus without complication, unspecified whether penitentiary insulin use (ICD-10 - E11.9) 07/21/2024 Chronic obstructive pulmonary disease, unspecified COPD type (ICD-10 - J44.9) depomedrol/decadr on im 07/01/2024 Chronic obstructive pulmonary disease, unspecified COPD type (ICD-10 - J44.9) 07/21/2024 Type 2 diabetes mellitus without complications (ICD-10 - E11.9) conitnue meds monitor 06/23/2024 Acquired hypothyroidism (ICD-10 - E03.9) tsh 06/23/2024 Rheumatoid arthritis involving multiple sites with positive rheumatoid factor (ICD-10 - M05.79) 04/09/2024 Type 2 diabetes mellitus without complication, unspecified whether terminal make up operator insulin use (ICD-10 - E11.9) 04/09/2024 Chronic obstructive pulmonary disease, unspecified COPD type (ICD-10 - J44.9) 07/21/2024 Elevated PSA (ICD-10 - R97.20) cipro 07/01/2024 Osteoarthritis, unspecified osteoarthritis type, unspecified site (ICD-10 - M19.90) 06/23/2024 Type 2 diabetes mellitus without complications (ICD-10 - E11.9) ha1c; microalbumin conitnue meds 09/30/2024 Chronic obstructive pulmonary disease, unspecified COPD type (ICD-10 - J44.9) 12/02/2024 Chronic obstructive pulmonary disease, unspecified COPD type (ICD-10 - J44.9) 02/09/2025 Depression screening (ICD-10 - Z13.31) *Please list patient's current problem list with appropriate and specific ICD-10's.. Depression screening performed using PHQ-9 Depression Scale with a score less than 5. No treatment plan indicated at this time, and screenings will be performed as indicated. 12/31/2024 Osteoarthritis, unspecified osteoarthritis type, unspecified site (ICD-10 - M19.90) 01/19/2025 Cerebrovascular accident (CVA) due to other mechanism (ICD-10 - I63.89) plavix 12/15/2024 Elevated PSA (ICD-10 - R97.20) 11/19/2024 Chronic obstructive pulmonary disease, unspecified COPD type (ICD-10 - J44.9) 11/17/2024 Shoulder pain (ICD-10 - M25.519) toradol 60 mg im 10/20/2024 Chronic obstructive pulmonary disease, unspecified COPD type (ICD-10 - J44.9) depomedrol/decadr on im 09/19/2024 Depression screen (ICD-10 - Z13.31) 09/15/2024 Osteoarthritis, unspecified osteoarthritis type, unspecified site (ICD-10 - M19.90) 08/19/2024 Chronic obstructive pulmonary disease, unspecified COPD type (ICD-10 - J44.9) 08/18/2024 Cerebrovascular accident (CVA), unspecified mechanism (ICD-10 - I63.9) 06/18/2024 Rheumatoid arthritis involving multiple sites with positive rheumatoid factor (ICD-10 - M05.79) 05/26/2024 Primary hypertension (ICD-10 - I10) continue meds cbc cmp 04/28/2024 Osteoarthritis, unspecified osteoarthritis type, unspecified site (ICD-10 - M19.90) 05/09/2024 Chronic obstructive pulmonary disease, unspecified COPD type (ICD-10 - J44.9) 03/31/2024 Chronic obstructive pulmonary disease, unspecified COPD type (ICD-10 - J44.9) 04/28/2024 Knee pain (ICD-10 - M25.569) 05/26/2024 Mixed hyperlipidemia (ICD-10 - E78.2) crestor lipids 10/20/2024 Cerebral infarction, unspecified mechanism (ICD-10 - I63.9) 12/15/2024 Intention tremor (ICD-10 - G25.2) 02/09/2025 Encounter for immunization (ICD-10 - Z23) pneumonia vaccine Immunization supplied by [employer] [employer]. *Please list patient's current problem list with appropriate and specific ICD-10's.. Depression screening performed using PHQ-9 Depression Scale with a score less than 5. No treatment plan indicated at this time, and screenings will be performed as indicated. 06/23/2024 Chronic obstructive pulmonary disease, unspecified COPD type (ICD-10 - J44.9) depomedrol/decadr on im 02/09/2025 Rheumatoid arthritis involving multiple sites with positive rheumatoid factor (ICD-10 - M05.79) depomedrol/decadr on im *Please list patient's current problem list with appropriate and specific ICD-10's.. Depression screening performed using PHQ-9 Depression Scale with a score less than 5. No treatment plan indicated at this time, and screenings will be performed as indicated. 10/20/2024 Type 2 diabetes mellitus without complications (ICD-10 - E11.9) ha1c 12/15/2024 Type 2 diabetes mellitus without complications (ICD-10 - E11.9) dr ardon eye 05/26/2024 Type 2 diabetes mellitus without complications (ICD-10 - E11.9) continue meds ha1c microalbumin 05/26/2024 Acquired hypothyroidism (ICD-10 - E03.9) levothyroxine tsh 10/20/2024 Elevated PSA (ICD-10 - R97.20) psa 02/09/2025 Chronic obstructive pulmonary disease, unspecified COPD type (ICD-10 - J44.9) continue meds *Please list patient's current problem list with appropriate and specific ICD-10's.. Depression screening performed using PHQ-9 Depression Scale with a score less than 5. No treatment plan indicated at this time, and screenings will be performed as indicated. 12/15/2024 Shoulder pain (ICD-10 - M25.519) toradol 60 mg im 06/23/2024 Primary hypertension (ICD-10 - I10) 06/23/2024 Elevated PSA (ICD-10 - R97.20) 10/20/2024 Drug therapy continued (ICD-10 - Z79.899) 02/09/2025 Encounter for administration of vaccine (ICD-10 - Z23) *Please list patient's current problem list with appropriate and specific ICD-10's.. Depression screening performed using PHQ-9 Depression Scale with a score less than 5. No treatment plan indicated at this time, and screenings will be performed as indicated. 05/26/2024 Rheumatoid arthritis involving multiple sites with positive rheumatoid factor (ICD-10 - M05.79) RA 06/23/2024 Mixed hyperlipidemia (ICD-10 - E78.2) 02/09/2025 Primary hypertension (ICD-10 - I10) *Please list patient's current problem list with appropriate and specific ICD-10's.. Depression screening performed using PHQ-9 Depression Scale with a score less than 5. No treatment plan indicated at this time, and screenings will be performed as indicated. 05/26/2024 Elevated PSA (ICD-10 - R97.20) psa 02/09/2025 Cerebrovascular accident (CVA) due to other mechanism (ICD-10 - I63.89) *Please list patient's current problem list with appropriate and specific ICD-10's.. Depression screening performed using PHQ-9 Depression Scale with a score less than 5. No treatment plan indicated at this time, and screenings will be performed as indicated. 02/09/2025 Type 2 diabetes mellitus without complications (ICD-10 - E11.9) *Please list patient's current problem list with appropriate and specific ICD-10's.. Depression screening performed using PHQ-9 Depression Scale with a score less than 5. No treatment plan indicated at this time, and screenings will be performed as indicated. 04/28/2024 Other Questions asked and answered; discharged to home. 05/26/2024 Other Questions asked and answered; discharged to home. 06/23/2024 Other Questions asked and answered; discharged to home. Venipuncture: Performed by: Adiel CORDOBA Attempts:x1 Location: LAC Needle gauge: 21g Patient tolerated well. 07/21/2024 Other Questions asked and answered; discharged to home. 08/18/2024 Other Questions asked and answered; discharged to home. 09/19/2024 Other Questions asked and answered; discharged to home. 10/20/2024 Other Questions asked and answered; discharged to home. Venipuncture: Performed by: Adiel CORDOBA Attempts:x1 Location:RAC Needle gauge: 22g Patient tolerated well. 11/17/2024 Other Questions asked and answered; discharged to home. 12/15/2024 Other Questions asked and answered; discharged to home. 01/19/2025 Other Questions asked and answered; discharged to home. 02/09/2025 Other Questions asked and answered; discharged to home. Give Flu vaccine as directed per provider *Please list patient's current problem list with appropriate and specific ICD-10's.. Depression screening performed using PHQ-9 Depression Scale with a score less than 5. No treatment plan indicated at this time, and screenings will be performed as indicated. Plan Of Treatment Next Appt Details Provider Name:Danielle Linda Duarte, 03/23/2025 01:20:00 PM, [address] [place] [address], [phone], Insurance Providers Payer Name Payer Address Payer Phone Subscriber Number Group Number Insured Name Patient Relationship to Insured Coverage Start Date Coverage End Date [place] [address] [employer] [phone] [id number] Rigoberto Valdovinos Self - patient is the insured [place] [employer] [place] [address] [employer] [place] [phone] [id number] Rigoberto Valdovinos Self - patient is the insured Medications Administered Medication Instructions Date of Administration Dosage Notes DEPO-Medrol 03/16/2022 40 mg NDC: 6163-2656-75 Patient tolerated well, advised to wait 20 min at clinic DEPO-Medrol 09/15/2021 40 mg ndc 08349-438 3-1 pt tolerated well/instructed to wait 20 min DEPO-Medrol 10/14/2021 40 mg NDC: [address]-54 Patient tolerated well, advised to wait 20 min at clinic DEPO-Medrol 01/12/2022 40 mg NDC: [address]-41 Patient tolerated well, advised to wait 20 min at clinic DEPO-Medrol 04/17/2022 40 mg NDC: [address]-72 Patient tolerated well, advised to wait 20 min at clinic DEPO-Medrol 07/28/2022 [place] [address]-290 3-01 pt tolerated well/instructed to wait 20 min DEPO-Medrol 09/14/2022 40 mg [facility] [address]-303 3-01 Pt tolerated well/instructed to wait 20 min DEPO-Medrol 10/19/2022 40 mg [facility] 72075-964 3-01 pt tolerated well/instructed to wait 20 min DEPO-Medrol 01/16/2023 40 mg [facility] 45073-555 3-01 pt tolerated well/instructed to wait 20 min DEPO-Medrol 02/16/2023 40 mg [facility] 95644-631 3-01 pt tolerated well/instructed to wait 20 min DEPO-Medrol 03/30/2023 40 mg [facility] 55940-893 3-01 pt tolerated well/instructed to wait 20 min DEPO-Medrol 05/01/2023 [place] [address]-038 3-01 pt tolerated well/instructed to wait 20 min DEPO-Medrol 06/01/2023 [place] [address]-248 3-01 pt tolerated well/instructed to wait 20 min DEPO-Medrol 07/03/2023 [place] [address]-491 3-01 pt tolerated well/instructed to wait 20 min DEPO-Medrol 08/02/2023 40 mg [facility] [address]-244 3-01 pt tolerated well/instructed to wait 20 min DEPO-Medrol 09/04/2023 40 mg [facility] 350[address]-666 3-01 pt tolerated well/instructed to wait 20 min DEPO-Medrol 10/02/2023 40 [place] [address]-979 3-01 pt tolerated well/instructed to wait 20 min DEPO-Medrol 11/08/2023 [place] [address]-029 3-01 pt tolerated well/instructed to wait 20 min DEPO-Medrol 12/10/2023 [place] [address]-896 3-01 pt tolerated well/instructed to wait 20 min DEPO-Medrol 01/21/2024 40 mg ndc 75093-696 3-01 pt tolerated well/instructed to wait 20 min DEPO-Medrol 02/25/2024 [place] [address]-299 3-01 pt tolerated well/instructed to wait 20 min DEPO-Medrol 04/28/2024 40 mg [facility] [address]-739 3-10 pt tolerated well/instructed to wait 20 min DEPO-Medrol 05/26/2024 40 mg [facility] 05551-651 3-01 pt tolerated well/instructed to wait 20 min DEPO-Medrol 06/23/2024 40 mg [facility] 03243-492 3-01 pt tolerated well/instructed to wait 20 min DEPO-Medrol 07/21/2024 40 mg [facility] 62835-883 3-01 pt tolerated well/instructed to wait 20 min DEPO-Medrol 08/18/2024 40 mg [facility] 92319-747 3-01 pt tolerated well/instructed to wait 20 min DEPO-Medrol 09/19/2024 40 mg [facility] 00033-789 3-01 pt tolerated well/instructed to wait 20 min DEPO-Medrol 10/20/2024 40 mg [facility] 81173-773 3-01 pt tolerated well/instructed to wait 20 min DEPO-Medrol 11/17/2024 40 mg [facility] 17486-051 3-01 pt tolerated well/instructed to wait 20 min DEPO-Medrol 12/15/2024 40 mg [facility] 41232-535 3-01 pt tolerated well/instructed to wait 20 min DEPO-Medrol 01/19/2025 40 mg [facility] 375[address]-766 3-10 pt tolerated well/instructed to wait 20 min DEPO-Medrol 02/09/2025 40 mg [facility] 84321-853 3-01 pt tolerated well/instructed to wait 20 min dexAMETHasone 06/20/2021 8 mg [facility]: 52050-266-79 patient tolerated well, advised to wait 20 min at clinic dexAMETHasone 09/15/2021 4 mg [facility] 97386-6 65-30 pt tolerated well/instructed to wait 20 min dexAMETHasone 10/14/2021 4 mg NDC: 36626-714-92 Patient tolerated well, advised to wait 20 min at clinic dexAMETHasone 01/12/2022 4 mg NDC: 96625-058-37 Patient tolerated well, advised to wait 20 min at clinic dexAMETHasone 03/16/2022 4 mg NDC: 54451-764-67 Patient tolerated well, advised to wait 20 min at clinic dexAMETHasone 04/17/2022 4 mg NDC: [address]-83 Patient tolerated well, advised to wait 20 min at clinic dexAMETHasone 07/28/2022 4 mg ndc 40283-7 423-00 pt tolerated well/instructed to wait 20 min dexAMETHasone 09/14/2022 4 mg ndc 85970-5 423-00 pt tolerated well/instructed to wait 10 min dexAMETHasone 10/19/2022 4 mg ndc 53865-0 423-00 pt tolerated well/instructed to wait 20 min dexAMETHasone 01/16/2023 4 mg ndc 22100-8 423-00 pt tolerated well/instructed to wait 20 min dexAMETHasone 02/16/2023 4 mg ndc 58033-0 423-00 pt tolerated well/instructed to wait 20 min dexAMETHasone 03/30/2023 4 mg ndc 03854-6 423-00 pt tolerated well/instructed to wait 20 min dexAMETHasone 05/01/2023 4 mg ndc 13197-8 423-00 pt tolerated well/instructed to wait 20 min dexAMETHasone 06/01/2023 4 mg ndc 95019-7 423-00 pt tolerated well/instructed to wait 20 min dexAMETHasone 07/03/2023 4 mg ndc 45456-7 423-00 pt tolerated well/instructed to wait 20 min dexAMETHasone 08/02/2023 4 mg ndc 54278-6 423-00 pt tolerated well/instructed to wait 20 min dexAMETHasone 09/04/2023 4 mg ndc 73537-7 423-00 pt tolerated well/instructed to wait 20 min dexAMETHasone 10/02/2023 4 mg ndc 31964-8 423-00 pt tolerated well/instructed to wait 20 min dexAMETHasone 11/08/2023 4 mg ndc 93756-1 423-00 pt tolerated well/instructed to wait 20 min dexAMETHasone 12/10/2023 4 mg ndc 59536-5 423-00 pt tolerated well/instructed to wait 20 min dexAMETHasone 01/21/2024 4 mg ndc 81105-3 423-00 pt tolerated well/instructed to wait 20 min dexAMETHasone 02/25/2024 4 mg ndc 03463-2 423-00 pt tolerated well/instructed to wait 20 min dexAMETHasone 04/28/2024 4 mg ndc 60099-9 419-00 pt tolerated well/instructed to wait 20 min dexAMETHasone 05/26/2024 4 mg ndc 97839-1 423-00 pt tolerated well/instructed to wait 20 min dexAMETHasone 06/23/2024 4 mg ndc 08201-8 423-00 pt tolerated well/instructed to wait 20 min dexAMETHasone 07/21/2024 4 mg [facility] 79697-9 423-00 pt tolerated well/instructed to wait 20 min dexAMETHasone 08/18/2024 4 mg ndc 08682-0 423-00 pt tolerated well/instructed to wait 20 min dexAMETHasone 09/19/2024 4 mg ndc 22356-9 423-00 pt tolerated well/instructed to wait 20 min dexAMETHasone 10/20/2024 4 mg ndc 03723-6 165-02 pt tolerated well/instructed to wait 20 min dexAMETHasone 11/17/2024 4 mg ndc 51064-2 165-02 pt tolerated well/instructed to wait 20 min dexAMETHasone 12/15/2024 4 mg ndc 89160-2 423-00 pt tolerated well/instructed to wait 20 min dexAMETHasone 01/19/2025 4 mg ndc 29709-1 423-00 pt tolerated well/instructed to wait 20 min dexAMETHasone 02/09/2025 4 mg ndc 86226-0 423-00 pt tolerated well/instructed to wait 20 min Ketorolac Tromethamine 11/17/2024 [address] [place] [address]-62 pt tolerated well/instructed to wait 20 min Ketorolac Tromethamine 12/15/[address] [place] [address]-27 pt tolerated well/instructed to wait 20 min Medical (General) History Medical History History ICD Code COPD stroke hyperlipidemia High Blood Pressure Hypothyroidism anticoagulation therapy chronic sinusitis basal cell carcinoma cataracts bronchitis emphysema Surgical History Surgery Date(Month/Year) sinus surgery cancer, skin to face cataract removal Hospitalization History Reason Date(Month/Year) Stroke COPD exacer
--- OUTSIDE RECORDS SUMMARY | 2025-03-16 19:14 | XMS_ITS | Patient Health Record ---
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 Name Role Phone Duarte, [facility] Primary Care Provider NEY Nguyen Unavailable [phone] Allergies Allergen (clinical drug ingredient) Drug/Non Drug Allergy documented on EMR Reaction Allergy Type Onset Date Status Amoxicillin-Pot Clavulanate , Drug Allergy Active aspirin Aspirin , Drug Allergy Active Ciprofloxacin , Drug Allergy Act yulissa doxycycline Doxycycline , Drug Allergy Act yulissa ceftriaxone Ceftriaxone , Drug Allergy Act yulissa Reason For Referral No Information Medications Medication SIG (Take, Route, Frequency, Duration) Notes Start Date End Date Status Roflumilast 500 MCG TAKE ONE TABLET BY MOUTH EVERY DAY; Duration: 30 *Reorder from [facility] for eRx and Interaction Alerts* Active predniSONE 5 mg TAKE ONE TABLET BY MOUTH EVERY DAY OR DIRECTED; Duration: 30 Active Escitalopram Oxalate 20 mg TAKE ONE TABLET BY MOUTH EVERY DAY; Duration: 30 Active Vitamin D (Ergocalciferol) 1.25 MG (60012 UT) TAKE ONE CAPSULE BY MOUTH EVERY WEEK; Duration: 28 Active Rosuvastatin Calcium 10 mg TAKE ONE TABLET BY MOUTH EVERY DAY; Duration: 30 Active Lisinopril 10 mg TAKE ONE TABLET BY MOUTH EVERY DAY; Duration: 30 Active Fluticasone Propionate 50 MCG/ACT insitll ONE SPRAY IN EACH NOSTRIL TWICE DAILY Nasal; Duration: 30 Not-Taking Budesonide 0.5 MG/2ML USE 1 VIAL IN NEBULIZER TWICE DAILY (RINSE MOUTH AFTER EACH TREATMENT) Active glipiZIDE 5 mg TAKE TWO TABLETS BY MOUTH TWICE DAILY with meals FOR blood sugar; Duration: 30 Active Yupelri 175 MCG/3ML USE 1 VIAL IN NEBULIZER DAILY Active Albuterol Sulfate (2.5 MG/3ML) 0.083% 3 ml as needed Inhalation every 6 hrs; Duration: 30 days Active Arformoterol Tartrate 15 MCG/2ML USE 1 VIAL IN NEBULIZER TWICE DAILY (MORNING AND EVENING) Active Ativan 0.5 MG 1/2 to 1 tab Orally twice a day prn anxiety; Duration: 30 days 03/16/2022 Active Clopidogrel Bisulfate 75 mg TAKE ONE TABLET BY MOUTH EVERY DAY; Duration: 30 Active Carbidopa-Levodopa 10-100 MG 1 tablet Orally Three times a day; Duration: 30 day(s) Active Levothyroxine Sodium 75 mcg TAKE ONE TABLET BY MOUTH DAILY; Duration: 30 Active Immunizations Vaccine Route Administration Date Status Comme nts Flucelvax Quadrivalent Pres Free IM Intramuscular 01/20/2022 Administered [facility] 76144-222-3 3 pt tolerated well/instructed to wait 20 min Prevnar 20 IM Intramuscular 01/20/2022 Administered [facility] 00 05-2000-10 pt tolerated well/instructed to wait 20 min Social History Tobacco Use: Social History Observation Description Date Details (start date - stop date) Former Smoker NA - NA Tobacco Control (Standard) Question Answer Notes Tobacco use: Former smoker How long has it been since you last smoked? Grea ter than 10 years Section Notes: 09/15/2021 09/15/2021 09/15/2021 09/15/2021 Depression screen completed 07/28/2022 score 1 Depression screen completed 07/28/2022 score 1 Depression screen completed 07/28/2022 score 1 09/15/2021 Depression screen completed 07/28/2022 score 1 Problems Problem Type SNOMED Code ICD Code Onset Dates Problem Status W/U Status Risk Notes Problem Simple chronic bronchitis (49162042) Simple chronic bronchitis (J41.0) Active confirmed Problem Emphysema (65728128) Other emphysema (J43.8) Active confirmed Problem Mixed hyperlipidemia (080034232) Mixed hyperlipidemia (E78.2) Active confirmed Problem Type II diabetes mellitus without complication (601267756) Type 2 diabetes mellitus without complication, unspecified whether terminal gauger supervisor insulin use (E11.9) Active confirmed Problem Osteoarthritis (317833990) Osteoarthritis, unspecified osteoarthritis type, unspecified site (M19.90) Active confirmed Problem COPD - Chronic obstructive pulmonary disease (57672248) Chronic obstructive pulmonary disease, unspecified COPD type (J44.9) Active confirmed Problem Primary hypertension (44287120) Primary hypertension (I10) Active confirmed Problem Pulmonary emphysema (54839889) Pulmonary emphysema, unspecified emphysema type (J43.9) Active confirmed Problem Cerebrovascular accident (983780673) Cerebrovascular accident (CVA), unspecified mechanism (I63.9) Active confirmed Problem Rheumatoid arthritis (87486043) Rheumatoid arthritis involving multiple sites with positive rheumatoid factor (M05.79) Active confirmed Problem Acquired hypothyroidism (681663954) Acquired hypothyroidism (E03.9) Active confirmed Problem Chronic bronchitis (09755797) Chronic bronchitis, unspecified chronic bronchitis type (J42) Active confirmed Problem Screening for malignant neoplasm of prostate (549506416) Prostate cancer screening (Z12.5) Active confirmed Problem Anxiety (56944140) Anxiety (F41.9) Active confi rmed Problem Intention tremor (06631134) Intention tremor (G25.2) Active confirmed Problem Cerebral infarction (disorder) (387750340) Cerebrovascular accident (CVA) due to other mechanism (I63.89) Active confirmed Problem Cerebral infarction (701628446) Cerebral infarction, unspecified mechanism (I63.9) Active confirmed Problem Parkinson disease (85608433) Parkinson disease (G20) Active confirmed Plan Of Treatment Pending Test Test Name Order Date Creatinine 10/30/2023 MRI : Pelvis with and without Contrast 7 219610/30/2023 URINALYSIS MICROSCOPIC (8563) 10/30/2023 CULTURE, URINE, ROUTINE (395) 10/30/2023 Blood Urea Nitrogen (BUN) 10/30/2023 Insurance Providers Payer Name Payer Address Payer Phone Subscriber Number Group Number Insured Name Patient Relationship to Insured Coverage Start Date Coverage End Date [place] Medicare [address] [place] [id number] [phone] [id number] Rigoberto Valdovinos Self - patient is the insured [address] [id number] Rigoberto Valdovinos Self - patient is the insured Medical (General) History Medical History History ICD Code COPD stroke hyperlipidemia High Blood Pressure Hypothyroidism anticoagulation therapy chronic sinusitis basal cell carcinoma cataracts bronchitis emphysema Surgical History Surgery Date(Month/Year) sinus surgery cancer, skin to face cataract removal Hospitalization History Reason Date(Month/Year) COPD exacer Stroke
[2025-03-16 19:29] LABS: Lactic Acid level (Lactate) 1.5 mmol/L (0.5-2.2)
--- NOTE | 2025-03-16 20:08 | PM.HP ---
Providers/Chief Complaint Admitting Physician: Noel Camp MD Primary Care Provider: Danielle Duarte APN Chief Complaint: AMS History of Present Illness Rigoberto Valdovinos is a 69 year old male lives at home with his Erika. Patient has been having cough with white phlegm for about 2 to 3 days. He is sick all the time but has been more sick for the last 2 to 3 days not eating or drinking well. He denies pain fevers chills night sweats but admits to just feeling very tired. He had altered mental status on presentation but that is resolved with IV fluids. Patient has history of Parkinson's with dementia COPD and is on chronic prednisone 5 mg daily as well as other inhaled nebulizers. He stopped smoking 20 years ago. Temperature max was 100 here. is also sick with weakness and a cough. They are dealing with emotional stress this week as patient's [id number] last week and Erika's brother just on Sunday Review of Systems Narrative: General No fevers chills night sweats states his weight has been stable in last 1 year Cardiovascular no chest pain palpitations edema Respiratory positive for shortness of breath cough white phlegm GI no nausea vomiting constipation he has had diarrhea 4-5 times this week but states bowel movements are less than once a day no dysuria hematuria he does have nocturia 2 times a night with hesitancy but not dribbling Hematologic no history of DVT or PE Neuro he had a stroke in 2013 with right-sided weakness he has had a CT scan showed that he has had 2-3 strokes showing up on the CT. He takes Plavix because he is allergic to aspirin Medications/Allergies Home Medications ?Medication ?Instructions ?Recorded ?Confirmed ?Last Taken ?Type arformoterol 15 mcg/2 mL solution 2 ml inhalation BID PRN Shortness 10/17/22 10/30/23 04/20/23 History for nebulization (Brovana) Of Breath budesonide 0.25 mg/2 mL suspension 0.25 mg inhalation BID PRN 10/17/22 10/30/23 04/20/23 History for nebulization Shortness Of Breath escitalopram oxalate 20 mg tablet 20 mg PO DAILY 10/17/22 10/30/23 10/30/23 History (Lexapro) glipizide 5 mg tablet 10 mg PO BID 10/17/22 10/30/23 10/30/23 History levothyroxine 75 mcg capsule 75 mcg PO DAILY 10/17/22 10/30/23 10/30/23 History lisinopril 10 mg tablet 10 mg PO DAILY 10/17/22 10/30/23 10/30/23 History prednisone 5 mg tablet 5 mg PO DAILY 10/17/22 10/30/23 10/30/23 History revefenacin 175 mcg/3 mL solution 175 mcg inhalation DAILY 10/17/22 10/30/23 10/30/23 History for nebulization (Yupelri) roflumilast 500 mcg tablet 500 mcg PO DAILY 10/17/22 10/30/23 10/30/23 History (Daliresp) rosuvastatin 10 mg tablet 10 mg PO DAILY 10/17/22 10/30/23 10/29/23 History clopidogrel 75 mg tablet 75 mg PO DAILY 02/05/23 10/30/23 10/30/23 History ergocalciferol (vitamin D2) 1,250 1,250 mcg PO Q7D 10/30/23 10/30/23 10/26/23 History mcg (50,000 unit) capsule fluticasone propionate 50 1 spray intranasal DAILY 10/30/23 10/30/23 10/30/23 History mcg/actuation nasal spray,suspension furosemide 20 mg tablet 20 - 40 mg PO DAILY PRN SWELLING 10/30/23 10/30/23 Unknown History primidone 50 mg tablet See Rx Instructions .Route .COMPLEX 10/30/23 10/30/23 10/30/23 History Allergies Allergy/AdvReac Type Severity Reaction Status Date / Time aspirin Allergy Severe ALGY-Difficulty Verified 04/30/23 15:33 Breathing PFSH Acute PFSH: Medical History (Updated 03/16/25 @ 20:14 by Noel Camp MD) Implantable loop recorder present Vitals/I&O/Wt Last Vital Signs Temp 97.4 F L 03/16/25 19:51 Pulse 100 03/16/25 19:51 Resp 16 03/16/25 18:30 BP 96/63 03/16/25 19:51 Pulse Ox 94 03/16/25 19:51 O2 Del Method Room Air 03/16/25 19:51 03/16/25 03/16/25 03/16/25 06:59 14:59 22:59 Intake Total 2600 / 2600 Balance 2600 / 2600 Weight last 48 hrs Weight 85.593 kg Physical Exam Narrative: General Well-developed male overweight CV regular rate and rhythm Lungs he has no crackles poor air movement in the bases he has a prolonged x-ray phase with some squeaks left upper lung is the most notable Abdomen positive bowel tones soft obese nontender Calves trace ankle edema Skin warm and mildly damp Data 03/16/25 16:37 03/16/25 16:37 Micro: Microbiology 03/16/25 16:39 Blood Culture - Preliminary Blood SPECIMEN COLLECTED 03/16/25 16:37 Blood Culture - Preliminary Blood SPECIMEN COLLECTED A&P Assessment and plan 1. RSV infection: Patient was treated with prednisone 40 mg daily. He has a long history of COPD and his COPD medications will be continued 2. Dehydration: Receiving fluid 3. Acute kidney injury: Recheck in the morning after fluid hydration 4. Elevated white blood cell count: Unclear etiology chest x-ray shows no infiltrate and urine negative will not treat at this time. Lactic acid resolved with initial fluid boluses 5. Microscopic hematuria: Follow-up with urology. Patient has some BPH symptoms and will be started on Flomax 6. COPD exacerbation: Prednisone 40 mg daily. Continue nebulizers PDMP PDMP Reviewed: Not Reviewed Attestations Medical Necessity Statement*: Patient is admitted to hospital in observation and expected require less than 2 midnights Coding Level of Care Code 73798 Diagnoses RSV infection B33.8 Dehydration E86.0 Acute kidney injury N17.9 Elevated white blood cell count D72.829 Microscopic hematuria R31.29 COPD exacerbation J44.1 Time Spent (min) 57
[2025-03-16 20:57] LABS: Magnesium 1.8 mg/dL (1.7-2.3)
[2025-03-16] MEDS: sodium chlor 0.9% + KCl 20 mEq 20 MEQ/1,000 ML BAG 150 MEQ IV (21:32)
--- NOTE | 2025-03-16 22:32 | ECG_ITS ---
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 Measurements Intervals [place] Rate: 94 P: 56 TX: 181 QRS: 26 QRSD: 96 T: 71 QT: 362 QTc: 455 Interpretive Statements SINUS RHYTHM NONSPECIFIC T-WAVE ABNORMALITY Compared to ECG 03/16/2025 16:54:09 T-wave abnormality now present Sinus tachycardia no longer present Electronically Signed On 03-17-2025 21:47:22 AGENCY SERVICE COORDINATOR by Lor Phelps M.D. [email or web address]
[2025-03-16] MEDS: ARFORMOTEROL 15 MCG/2 ML NEB INHALATION (22:41)
[2025-03-17] VITALS (7 sets, daily range): BP systolic 100–125; BP diastolic 56–70; PULSE 93–104; RESP 16–20; TEMP 36.8–38.1; O2SAT 93–95
[2025-03-17 00:03] LABS: Troponin 5 6HR 88.77 ng/L (0-15)
[2025-03-17] MEDS: sodium chlor 0.9% + KCl 20 mEq 20 MEQ/1,000 ML BAG 150 MEQ IV ×2 (03:21→09:47)
[2025-03-17 05:37] LABS: Hematocrit 39.4 % (37-53); Hemoglobin 12.90 g/dL (11.27-16.99); Mean Corpuscular HGB Conc 32.7 g/dL (30-55); Mean Corpuscular Hemoglobin 30.6 pg (27-33); Mean Corpuscular Volume 93.4 fl (82-101); Nucleated Red Blood Cells % 0 %; Platelet Count 219 10^3/cmm (157-399); Red Blood Count 4.22 10^6/uL (3.85-5.65); White Blood Count 10.25 10^3/uL (3.29-11.43)
[2025-03-17] MEDS: fluticasone nasal spray 16gm Btl 1 SPRAY INTRANASAL (05:57)
[2025-03-17 06:01] LABS: Anion Gap 14.9 (5-19); Blood Urea Nitrogen 20 mg/dL (8-23); Calcium 7.7 mg/dL (8.5-10.5); Carbon Dioxide 24 mmol/L (22-29); Chloride 103 mmol/L (98-107); Glucose 219 mg/dL (65-115); Osmolality Calculated 295 mOsm/kg (285-295); Potassium 3.9 mmol/L (3.5-5.1); Sodium 138 mmol/L (136-145)
[2025-03-17] MEDS: ARFORMOTEROL 15 MCG/2 ML NEB INHALATION (08:45)
--- NOTE | 2025-03-17 09:59 | P.DS_ITS ---
Discharge Providers Date of Admission: 03/16/25 19:32 Date of Discharge: March 17, 2025 Attending Provider at Admission: Noel Camp MD Attending Provider at Discharge: Susannah Ramires NP Primary Care Provider: Danielle Duarte APN Diagnoses at Discharge Discharge Diagnosis 1. RSV infection: 2. Dehydration: 3. Acute kidney injury: 4. Elevated white blood cell count: 5. Microscopic hematuria: 6. COPD exacerbation: Reason for Visit Reason for Visit: AMS Brief History: Admission: Rigoberto Valdovinos is a 69 year old male lives at home with his Erika. Patient has been having cough with white phlegm for about 2 to 3 days. He is sick all the time but has been more sick for the last 2 to 3 days not eating or drinking well. He denies pain fevers chills night sweats but admits to just feeling very tired. He had altered mental status on presentation but that is resolved with IV fluids. Patient has history of Parkinson's with dementia COPD and is on chronic prednisone 5 mg daily as well as other inhaled nebulizers. He stopped smoking 20 years ago. Temperature max was 100 here. is also sick with weakness and a cough. They are dealing with emotional stress this week as patient's [id number] last week and Erika's brother just on Sunday. Hospital Course Hospital Course RSV infection: Patient was treated with prednisone 40 mg daily. He has a long history of COPD and his COPD medications will be continued 2. Dehydration: Receiving fluid 3. Acute kidney injury: Recheck in the morning after fluid hydration 4. Elevated white blood cell count: Unclear etiology chest x-ray shows no infiltrate and urine negative will not treat at this time. Lactic acid resolved with initial fluid boluses 5. Microscopic hematuria, UTI POA: Follow-up with urology. Patient has some BPH symptoms and will be started on Flomax. Continues on Keflex at discharge. 6. COPD exacerbation: Prednisone 40 mg daily. Continue nebulizers Discharge: Patient is at his baseline mentation, discharge is in stable condition in care of spouse. Recommended for outpatient home health for nursing and physical therapy. Patient eating and drinking well. Continues on prednisone x 5 days, Flomax for BPH with referral to urology for outpatient follow-up, and Keflex for continued treatment for UTI. Patient is advised to follow-up with primary care provider in 1 to 2 days and urology in the next week. Physical Exam Narrative: General Well-developed male overweight CV regular rate and rhythm Lungs he has no crackles poor air movement in the bases Abdomen positive bowel tones soft obese nontender Calves trace ankle edema Skin warm and mildly damp Discharge Data Studies Completed and Pending Completed Studies During Hospitalization Category Date Time Status CT head wo con* [id number] Stat Cat Scan 03/16/25 15:59 Completed XR chest 1V portable [id number] Stat Exams 03/16/25 15:59 Completed Pending at discharge Category Date Time Status Blood Culture Stat Lab 03/16/25 16:39 Results Urine Culture Stat Lab 03/16/25 18:28 Received Radiology Impressions Chest X-Ray 03/16/25 15:59 IMPRESSION: No acute cardiopulmonary process. Head CT 03/16/25 15:59 IMPRESSION: 1. No large territorial infarct or intracranial bleed. 2. Findings of acute paranasal sinusitis. Laboratory Results WBC 10.25 10^3/uL (3.29-11.43) 03/17/25 05:12 RBC 4.22 10^6/uL (3.85-5.65) 03/17/25 05:12 Hgb 12.90 g/dL (11.27-16.99) 03/17/25 05:12 Hct 39.4 % (37-53) 03/17/25 05:12 MCV 93.4 fl (82-101) 03/17/25 05:12 MCH 30.6 pg (27-33) 03/17/25 05:12 MCHC 32.7 g/dL (30-55) 03/17/25 05:12 RDW 13.4 % (12.1-15.1) 03/17/25 05:12 Plt Count 219 10^3/cmm (157-399) 03/17/25 05:12 MPV 10.1 fL (7.4-10.4) 03/17/25 05:12 Neut % (Auto) 63.7 % 03/17/25 05:12 Lymph % (Auto) 20.7 % 03/17/25 05:12 [place] % (Auto) 10.1 % 03/17/25 05:12 Eos % (Auto) 4.3 % 03/17/25 05:12 Baso % (Auto) 0.4 % 03/17/25 05:12 Neut # (Auto) 6.53 10^3/uL (1.8-7.7) 03/17/25 05:12 Lymph # (Auto) 2.1 10^3/uL (0.8-4.8) 03/17/25 05:12 [place] # (Auto) 1.0 10^3/uL (0.2-0.9) H 03/17/25 05:12 Eos # (Auto) 0.4 10^3/uL (0.0-0.8) 03/17/25 05:12 Baso # (Auto) 0.0 10^3/uL (0.0-0.1) 03/17/25 05:12 Nucleated RBC % (auto) 0 % 03/17/25 05:12 Nucleated RBCs # 0.0 /100WBC 03/17/25 05:12 Sodium 138 mmol/L (136-145) 03/17/25 05:12 Potassium 3.9 mmol/L (3.5-5.1) 03/17/25 05:12 Chloride 103 mmol/L (98-107) 03/17/25 05:12 Carbon Dioxide 24 mmol/L (22-29) 03/17/25 05:12 Anion Gap 14.9 (5-19) 03/17/25 05:12 BUN 20 mg/dL (8-23) 03/17/25 05:12 Creatinine 1.4 mg/dL (0.7-1.2) H 03/17/25 05:12 GFR Calculation 50.2 mL/min (90-130) L 03/17/25 05:12 Glucose 219 mg/dL (65-115) H 03/17/25 05:12 Calculated Osmolality 295 mOsm/kg (285-295) 03/17/25 05:12 Lactic Acid 3.3 mmol/L (0.5-2.2) H 03/16/25 16:37 Lactic Acid (Sepsis) 1.5 mmol/L (0.5-2.2) 03/16/25 18:43 Calcium 7.7 mg/dL (8.5-10.5) L 03/17/25 05:12 Phosphorus 2.1 mg/dL (2.5-4.5) L 03/16/25 17:27 Magnesium 1.8 mg/dL (1.7-2.3) 03/16/25 17:27 Total Bilirubin 1.0 mg/dL (0.15-1.2) 03/16/25 16:37 AST 24 U/L (0-40) 03/16/25 16:37 ALT 16 U/L (0-41) 03/16/25 16:37 Alkaline Phosphatase 68 U/L (40-130) 03/16/25 16:37 Troponin T Baseline 113 ng/L (0-15) H* 03/16/25 16:37 Troponin T 60 Minute 114.3 ng/L (0-15) H 03/16/25 17:27 Delta Troponin T 1.3 ABS# (0-10) 03/16/25 17:27 Troponin T Hi Sens 6Hr 88.77 ng/L (0-15) H 03/16/25 23:18 Troponin T Hi Sens 6Hr Delta -24.23 ng/L (0-12) L 03/16/25 23:18 C-Reactive Protein 522.3 mg/L (0.0-4.9) H 03/16/25 16:37 NT-Pro-B Natriuret Pep 329 pg/mL (0-125) H 03/16/25 16:37 Total Protein 7.0 g/dL (6.6-8.7) 03/16/25 16:37 Albumin 3.9 g/dL (3.5-5.2) 03/16/25 16:37 Globulin 3.1 g/dL (1.3-4.6) 03/16/25 16:37 Procalcitonin 1.28 ng/mL (0-0.5) H 03/16/25 16:37 Urine Color [place] (Yellow) A 03/16/25 18:28 Urine Appearance Cloudy (CLEAR) A 03/16/25 18: Urine pH 5.0 (5-7) 03/16/25 18:28 Ur Specific [place] 1.026 (1.005-1.030) 03/16/25 18:28 Urine Protein 2+ (Negative) A 03/16/25 18:28 Urine Glucose (UA) 3+ (Normal) H 03/16/25 18:28 Urine Ketones 1+ (Negative) H 03/16/25 18:28 Urine Blood 1+ (Negative) A 03/16/25 18:28 Urine Nitrate Positive (Negative) A 03/16/25 18:28 Urine Bilirubin 2+ (Negative) H 03/16/25 18:28 Urine Urobilinogen 2.0 mg/dL (Negative) H 03/16/25 18:28 Ur Leukocyte Esterase Trace (Negative) A 03/16/25 18:28 Urine RBC 6-10 /hpf (0-2) 03/16/25 18:28 Urine WBC 0-5 /hpf (0-5) 03/16/25 18:28 Ur Squamous Epith Cells 0-5 /hpf (0-5) 03/16/25 18:28 Amorphous Sediment 3+ /hpf 03/16/25 18:28 Urine Bacteria None seen /hpf (NONE) 03/16/25 18:28 Hyaline Casts 54.60 /lpf 03/16/25 18:28 Coarse Granular Casts 0-4 /lpf H 03/16/25 18:28 Influenza A (PCR) Negative (Negative) 03/16/25 17:22 Influenza Type B (PCR) Negative (Negative) 03/16/25 17:22 RSV (PCR) Positive (Negative) A 03/16/25 17:22 SARS-CoV-2 (PCR) Negative (Negative) 03/16/25 17:22 Vitals Last Vital Signs Temp 100.5 F H 03/17/25 07:51 Pulse 101 H 03/17/25 09:01 Resp 20 H 03/17/25 08:45 BP 112/70 03/17/25 07:51 Pulse Ox 93 03/17/25 08:45 O2 Del Method Room Air 03/17/25 08:45 Discharge Plan Discharge Patient Disposition: Home Health Service Condition: Stable Prescriptions: New prednisone 20 mg Tablet 40 mg PO DAILY 5 Days Qty: 10 0RF tamsulosin 0.4 mg Capsule 0.4 mg PO DAILY 30 Days Qty: 30 0RF cephalexin 500 mg Capsule 500 mg PO TID 7 Days Qty: 21 0RF Continued glipizide 5 mg tablet 10 mg PO BID escitalopram oxalate [Lexapro] 20 mg tablet 20 mg PO DAILY roflumilast [Daliresp] 500 mcg tablet 500 mcg PO DAILY rosuvastatin 10 mg tablet 10 mg PO DAILY levothyroxine 75 mcg capsule 75 mcg PO DAILY lisinopril 10 mg tablet 10 mg PO DAILY budesonide 0.25 mg/2 mL suspension for nebulization 0.25 mg inhalation BID PRN (Reason: Shortness Of Breath) Yupelri 175 mcg/3 mL solution for nebulization 175 mcg inhalation DAILY arformoterol [Brovana] 15 mcg/2 mL solution for nebulization 2 ml inhalation BID PRN (Reason: Shortness Of Breath) clopidogrel 75 mg tablet 75 mg PO DAILY primidone 50 mg tablet See Rx Instructions .ROUTE .COMPLEX Rx Instructions: Take 1/2 tablet by mouth twice daily for 14days, then 1 tablet twice daily for 14 days, then 1 tablet in the morning & 2 tablets in the evening for 14 days, then 2 tablets in the morning and 3 tablets in the evening. furosemide 20 mg tablet 20 - 40 mg PO DAILY PRN (Reason: SWELLING) ergocalciferol (vitamin D2) 1,250 mcg (50,000 unit) capsule 1,250 mcg PO Q7D fluticasone propionate 50 mcg/actuation spray,suspension 1 spray INTRANASAL DAILY Held prednisone 5 mg tablet 5 mg PO DAILY Hold Instructions: Resume on 04/02/25. Hold until reviewed by primary care provider Discharge Order = DC NOW: Discharge Order (Routine); Ordered 03/17/25 Ordered By: Susannah Ramires Referrals: Juan A Teixeira [Referring, Urology] - 7-10 days Referral Note: BPH We have notified your physician's clinic of the need for a follow-up appointment to be scheduled. If you have not heard from them within the next 2 business days, please call them directly. Danielle Duarte APN [Primary Care Provider, Nurse Practitioner] - 03/19/25 2:20 pm Discharge Diet: Usual diet Discharge Activity: Resume usual activity Patient Instructions: Cephalexin (By mouth), Prednisone (By mouth), Tamsulosin (By mouth), Altered Mental Status (ED), COPD Stoplight, Opioid Safety, Patient Portal & [place] Instructions Discharge Attestations Time Spent in Discharge Care*: greater than 30 min Quality Metrics Clinical Quality Measures [ No reported AMI, CVA or VTE this stay] Coding Level of Care Code 20082 Diagnoses RSV infection B33.8 Dehydration E86.0 Acute kidney injury N17.9 Elevated white blood cell count D72.829 Microscopic hematuria R31.29 COPD exacerbation J44.1
== END 2025-03-17 14:54 | disposition home health service (06) ==
LOC: ER 20:22 → MEDSURG 21:43
PROVIDERS: Admitting Provider Internal Medicine; Emergency Provider Emergency Medicine; PCP Nurse Practitioner Family; Visit Provider Registered Nurse
DX: B33.8 Other specified viral diseases (principal); E86.0 Dehydration; N17.9 Acute kidney failure, unspecified; R31.29 Other microscopic hematuria; J44.1 Chronic obstructive pulmonary disease with (acute) exacerbation; Z79.02 Long term (current) use of antithrombotics/antiplatelets; Z66 Do not resuscitate; G20.A1 Parkinson's disease without dyskinesia, without mention of fluctuations; F02.80 Dementia in other diseases classified elsewhere, unspecified severity, without behavioral disturbance, psychotic disturbance, mood disturbance, and anxiety; Z87.891 Personal history of nicotine dependence; Z86.73 Personal history of transient ischemic attack (TIA), and cerebral infarction without residual deficits
CPT/HCPCS: 36415; 70450; 71045; 80048; 80053; 81001; 83605; 83735; 83880; 84100; 84145; 84484; 85025; 86140; 87040; 87086; 87637; 93005; 94640; 94664; 96361; 96365; 96372; 96375; 99285; G0378; J0131; J1650; J2020; J2185; J3480; J7030; J7512; J7605; J7626; J9999